=== PATIENT | female | born 1980 | race African-American/Black ===

== ENCOUNTER 2016-11-12 13:42 | Emergency (ER) | payer MEDICARE ==
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
[2016-11-12] MEDS ORDERED: Nicotine PATCH 21 MG/24 HR* PATCH TRANSDERM ONE (14:49)
[2016-11-12] MEDS ORDERED: LORazepam TAB(*) 1 MG PO ONE ×2 (14:49→21:16)
[2016-11-12] MEDS ORDERED: Acetaminophen TAB* 325 MG PO ONE ×2 (14:49→23:18)
[2016-11-12 14:59] LABS: Hematocrit 29 % (35-47); Hemoglobin 8.5 g/dl (12.0-16.0); Mean Corpuscular HGB Conc 30 g/dl (31-36); Mean Corpuscular Hemoglobin 19 pg (27-31); Mean Corpuscular Volume 63 fL (80-97); Mean Platelet Volume 7 um3 (7.4-10.4); Red Blood Count 4.57 10^6/ul (4.0-5.4); Red Cell Distribution Width 19 % (10.5-15); White Blood Count 3.7 10^3/ul (3.5-10.8)
[2016-11-12 15:04] LABS: Comments Flag Yes
[2016-11-12 15:05] LABS: Add Diff/Slide Review? Slide Review Added
[2016-11-12 15:14] LABS: ALT 17 U/L (7-52); AST 23 U/L (13-39); Albumin 4.2 g/dL (3.2-5.2); Alkaline Phosphatase 53 U/L (34-104); Anion Gap 9 mmol/L (2-11); BUN/Creatinine Ratio 12.2 (8-20); Blood Urea Nitrogen 10 mg/dL (6-24); CO2 Carbon Dioxide 25 mmol/L (22-32); Calcium 9.6 mg/dL (8.6-10.3); Chloride 104 mmol/L (101-111); EGFR African American 102.6 (>60); EGFR Non-African American 79.8 (>60); Globulin 3.7 g/dL (2-4); Glucose 95 mg/dL (70-100); Potassium 4.2 mmol/L (3.5-5.0); Sodium 138 mmol/L (133-145); Total Protein 7.9 g/dL (6.4-8.9)
[2016-11-12 15:15] LABS: Urine Bilirubin Negative (Negative); Urine Glucose Negative (Negative); Urine Nitrite Negative (Negative)
[2016-11-12 15:28] LABS: Acetaminophen < 15 mcg/mL; Alcohol < 10 mg/dL (<10); Salicylate < 2.50 mg/dL (<30)
[2016-11-12 15:31] LABS: Benzodiazepine Urine Screen None Detected (None Detect)
[2016-11-12 15:37] LABS: TSH (Thyroid Stimulating Horm) 0.53 mcIU/mL (0.34-5.60)
[2016-11-12 15:59] LABS: Add Path Review? YES; Hypochromasia 3+; Microcytosis 2+
[2016-11-12 16:11] LABS: Ferritin < 10.0 ng/mL (11-307)
[2016-11-12] MEDS ORDERED: Mouth Piece, Nicotine* 1 EACH CARTRIDGE INH ONE (22:29)
[2016-11-12] MEDS ORDERED: Mouth Piece, Nicotine* 1 EACH CARTRIDGE ONE (23:31)
[2016-11-12] MEDS ORDERED: Nicotine Inhaler* 10 MG AMP ONE (23:31)
[2016-11-12] MEDS: Nicotine Inhaler* 10 MG AMP INH PRN (23:34)
--- NOTE | 2016-11-13 02:09 | ED ---
Progress - Progress Note Progress Note: DR MONSON AT [facility] ACCEPTS PATIENT IN TRANSFER. - Consult/PCP Time Called: 15:10 Course/Dx - Diagnoses Provider Diagnoses: Persistent mood [affective] disorder, unspecified
[2016-11-13] MEDS: Nicotine Inhaler* 10 MG AMP INH PRN ×2 (02:11→08:04)
[2016-11-13] MEDS ORDERED: diPHENhydraMINE PO* 50 MG PO ONE (05:09)
[2016-11-13 10:04] VITALS: BP 113/56
[2016-11-13] MEDS ORDERED: LORazepam TAB(*) 1 MG PO ONE (10:04)
[2016-11-13] MEDS ORDERED: Acetaminophen TAB* 325 MG PO ONE (10:04)
[2016-11-13] MEDS ORDERED: LORazepam TAB(*) 1 MG ONE (10:06)
== END 2016-11-13 10:18 | disposition short-term general hospital (02) ==
LOC: ED 13:42
DX: F34.9 Persistent mood [affective] disorder, unspecified (principal); Z87.891 Personal history of nicotine dependence; F31.9 Bipolar disorder, unspecified
CPT/HCPCS: 36415; 80053; 80307; 80320; 80329; 81003; 82728; 84443; 85025; 85060; 93005; 99283; A9270-GY; G0480

== ENCOUNTER 2016-11-23 14:27 | Inpatient (IN) | payer MEDICARE ==
[2016-11-23 15:11] LABS: Comments Flag Yes; Hematocrit 28 % (35-47); Hemoglobin 8.3 g/dl (12.0-16.0); Mean Corpuscular HGB Conc 29 g/dl (31-36); Mean Corpuscular Hemoglobin 19 pg (27-31); Mean Platelet Volume 7 um3 (7.4-10.4); Red Blood Count 4.41 10^6/ul (4.0-5.4); Red Cell Distribution Width 19 % (10.5-15); White Blood Count 5.4 10^3/ul (3.5-10.8)
[2016-11-23 15:12] LABS: Mean Corpuscular Volume 64 fL (80-97)
[2016-11-23 15:21] LABS: Urine Bilirubin Negative (Negative); Urine Glucose Negative (Negative); Urine Nitrite Negative (Negative)
[2016-11-23 15:27] LABS: ALT 38 U/L (7-52); AST 33 U/L (13-39); Albumin 4.2 g/dL (3.2-5.2); Alkaline Phosphatase 51 U/L (34-104); Anion Gap 10 mmol/L (2-11); BUN/Creatinine Ratio 13.3 (8-20); Blood Urea Nitrogen 12 mg/dL (6-24); CO2 Carbon Dioxide 22 mmol/L (22-32); Calcium 9.2 mg/dL (8.6-10.3); Chloride 100 mmol/L (101-111); EGFR African American 92.2 (>60); EGFR Non-African American 71.7 (>60); Globulin 3.3 g/dL (2-4); Glucose 85 mg/dL (70-100); Potassium 3.8 mmol/L (3.5-5.0); Sodium 132 mmol/L (133-145); Total Protein 7.5 g/dL (6.4-8.9)
[2016-11-23 15:30] LABS: Benzodiazepine Urine Screen None Detected (None Detect)
[2016-11-23] MEDS ORDERED: Nicotine Inhaler* 10 MG AMP INH ONE (15:47)
[2016-11-23] MEDS ORDERED: Ibuprofen TAB* 600 MG PO ONE (15:49)
[2016-11-23] MEDS ORDERED: Nicotine Inhaler* 10 MG AMP ONE (15:49)
[2016-11-23] MEDS ORDERED: Mouth Piece, Nicotine* 1 EACH CARTRIDGE ONE (15:49)
[2016-11-23 16:27] LABS: Acetaminophen < 15 mcg/mL; Alcohol < 10 mg/dL (<10); Salicylate < 2.50 mg/dL (<30)
[2016-11-23 16:38] LABS: TSH (Thyroid Stimulating Horm) 2.19 mcIU/mL (0.34-5.60)
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
--- NOTE | 2016-11-24 02:33 | ED ---
Progress - Progress Note Progress Note: ADMIT MHU STABLE - Consult/PCP Time Called: 19:23 Course/Dx - Course Course Of Treatment: She is medically cleared and awaiting MHE. - Diagnoses Provider Diagnoses: Adjustment disorder - Provider Notifications Discussed Care Of Patient With: Dr. Noriega at change of shift
[2016-11-24] MEDS ORDERED: Nicotine GUM* 2 MG PO PRN (02:43)
[2016-11-24] MEDS ORDERED: Mouth Piece, Nicotine* 1 EACH CARTRIDGE ONE ×2 (03:57→08:43)
[2016-11-24] MEDS: Nicotine Inhaler* 10 MG AMP INH PRN ×3 (04:00→11:36)
[2016-11-24] MEDS: Acetaminophen TAB* 325 MG PO PRN ×2 (07:37→19:21)
[2016-11-24] MEDS: Ferrous Sulfate TAB* 325 MG PO SCH ×2 (08:44→20:45)
[2016-11-24] MEDS: Mouth Piece, Nicotine* 1 EACH CARTRIDGE INH SCH (08:45)
[2016-11-24] MEDS: Vitamin THERAPEUTIC TAB PO SCH (08:45)
[2016-11-24] MEDS: Hydrochlorothiazide TAB* 25 MG PO SCH ×2 (10:59→18:09)
[2016-11-24] MEDS ORDERED: LORazepam TAB(*) 1 MG PO ONE ×2 (12:20→12:28)
[2016-11-24] MEDS ORDERED: LORazepam TAB(*) 1 MG ONE (12:23)
[2016-11-24] MEDS ORDERED: chlorproMAZINE TAB* 50 MG PO ONE (12:25)
[2016-11-24] MEDS ORDERED: chlorproMAZINE TAB* 50 MG ONE (12:29)
[2016-11-24] MEDS ORDERED: LORazepam INJ* 2 MG/ML 1 ML VIAL ONE (13:13)
[2016-11-24] MEDS ORDERED: LORazepam INJ* 2 MG/ML 1 ML VIAL IM ONE (13:13)
[2016-11-24] MEDS ORDERED: diPHENhydraMINE IV* 50 MG/ML 1 ml VIAL (BENADRYL) IM ONE (13:13)
[2016-11-24] MEDS ORDERED: Haloperidol INJ IV/IM* 5 MG/ML AMP IM ONE (13:13)
[2016-11-24] MEDS ORDERED: Haloperidol INJ IV/IM* 5 MG/ML AMP ONE (13:14)
[2016-11-24] MEDS ORDERED: diPHENhydraMINE IV* 50 MG/ML 1 ml VIAL (BENADRYL) ONE (13:14)
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
[2016-11-24] MEDS: LORazepam TAB(*) 1 MG PO PRN (19:21)
[2016-11-25] MEDS: Nicotine Inhaler* 10 MG AMP INH PRN ×6 (07:54→20:37)
[2016-11-25] MEDS: Hydrochlorothiazide TAB* 25 MG PO SCH ×2 (10:05→16:51)
[2016-11-25] MEDS: Vitamin THERAPEUTIC TAB PO SCH (10:05)
[2016-11-25] MEDS: Ferrous Sulfate TAB* 325 MG PO SCH ×2 (10:05→20:47)
[2016-11-25] MEDS: LORazepam TAB(*) 1 MG PO PRN ×3 (10:10→18:54)
--- NOTE | 2016-11-25 13:10 | PN ---
Subjective - Subjective Service Type: [id number] Hosp care 15 min low complexity Subjective: Radha asks for ibuprofen 800 mg po bid for pain in her neck. She does not agree to sit with me now to discuss her symptoms and history. She is equivocal as to whether she will allow us to gather information from prior hospitalizations. She states that we have psychological problems, so she does not trust us. Objective - Appearance Appearance: Well Developed/Nourished Dysmorphic Features: No Hygiene: Normal Grooming: Disheveled - Behavior Psychomotor Activities: Abnormal-Decreased - in bed, rocking her supine body at about 2-3 Hz - Attitude and Relatedness Attitude and Relatedness: Dismissive Eye Contact: Poor - Speech Quality: Unpressured Latencies: Normal Quantity: Terse - Mood Patient's Decription of Mood: "N-i-n-[id number]" - Affect Observed Affect: Tense Affect Consistent with: Dysphoria - Thought Process Patient's Thought Process: Disorganized Thought Content: No Passive Wish, No Suicidal Planning, No Homicidal Ideation, No Paranoid Ideation - Sensorium Experiencing Hallucinations: No, Sensorium is Clear Type of Hallucinations: Visual: No, Auditory: No, Command: No - Level of Consciousness Level of Consciousness: Agitated - mildly, with demonstrated potential to escalate - Impulse Control Impulse Control: Impaired - Insight and Judgement Insight and Judgement: Impaired - Group Participation Particating in Group Activities: No Assessment - Assessment Merits Inpatient Hospitalization: For Immediate Safety, For Stabilization, Diagnosis Determination, To Initiate Treatment, For Ongoing Evaluation, For Discharge Planning, Pending Safe DC Plan Inpatient DSM-IV Dx: Psychotic Disorder NOS. Schizoaffective Disorder by history. Amphetamine, cocaine and cannabinoid use disorders Clinical Impression: Ms. Ramirez is a 36-year-old, -[place] woman who has returned to the emergency department seven days after being discharged from the [facility] to which she had been transferred after presenting here on the 12 of November with report of paranoid ideation and homicidal and suicidal ideation. She has evidently returned to a similar frame of mind shortly following discharge from the [facility]. She has required already on the unit chemical restraint for agitation with threatening behavior. We will be awaiting her to be able to take a more collaborative stance toward assessment and treatment to go forward with care here. Once that occurs, we will attempt to gather more history and mental status reports from her, and we will attempt to obtain releases to obtain discharge summaries and to communicate with those who have provided care for her in the community and perhaps also family members or familiars in the community. The presence of amphetamine and cocaine in her system could be the explanation for her paranoia and homicidal ideation, or this intoxication may be only exacerbating a chronic psychotic disorder. We will resume Zyprexa against psychosis, with Ativan and Seroquel as needed for anxiety and agitation. 11.25.16: Radha remains paranoid and disorganized. She refuses to rise from bed to sit with me to report further history. She requests ibuprofen for pain. She has been taking her HCTZ and FeSO4, also Ativan prn, but has refused Seroquel prn. She did receive 5 mg haloperidol and 50 mg diphenhydramine IM yesterday, and an additional IM of 1 mg lorazepam to po doses taken. Plan - Plan Treatment Plan: Name: RADHA RAMIREZ Birthdate: 1980 [id number] Encourage collaborative stance to allow care to go forward. Encourage med compliance. Monitor MS and safety, with careful monitoring of level of agitation and early behavioral or chemical interventions as needed to prevent escalation to violence. Medications: Current Medications Acetaminophen (Tylenol Tab*) 650 mg PO Q4H PRN PRN Reason: PAIN or TEMP > 101 F Last Admin: 11/24/16 19:21 Dose: 650 mg Al Hydrox/Mg Hydrox/Simethicone (Maalox Plus*) 30 ml PO Q4H PRN PRN Reason: INDIGESTION Device (Nicotine Mouth Piece*) 1 each INH .[place] [facility] Last Admin: 11/24/16 08:45 Dose: 1 each Ferrous Sulfate (Ferrous Sulfate Tab*) 325 mg PO BID [facility] Last Admin: 11/25/16 10:05 Dose: 325 mg Hydrochlorothiazide (Hydrodiuril Tab*) 50 mg PO 0800,1600 [facility] Last Admin: 11/25/16 10:05 Dose: Not Given Lorazepam (Ativan Tab(*)) 1 mg PO Q4H PRN PRN Reason: ANXIETY Last Admin: 11/25/16 10:10 Dose: 1 mg Multivitamins (Theragran Tab*) 1 tab PO DAILY [facility] Last Admin: 11/25/16 10:05 Dose: 1 tab Nicotine (Nicotine Inhaler*) 10 mg INH Q2H PRN PRN Reason: CRAVING Last Admin: 11/25/16 12:42 Dose: 10 mg Nicotine Polacrilex (Nicotine Gum*) 2 mg PO Q2H PRN PRN Reason: CRAVING Quetiapine Fumarate (Seroquel Tab*) 25 mg PO Q4H PRN PRN Reason: AGITATION - Discharge Plan Discharge Plan: Outpatient Follow Up
[2016-11-25] MEDS ORDERED: diPHENhydraMINE PO* 50 MG ONE (14:44)
[2016-11-25] MEDS: QUEtiapine TAB* 25 MG PO PRN (16:23)
[2016-11-25] MEDS ORDERED: Ibuprofen TAB* 400 MG ONE (20:36)
[2016-11-25] MEDS: OLANzapine TAB*ODT* 10 MG TAB PO SCH (20:47)
[2016-11-26] MEDS: Ibuprofen TAB* 400 MG PO PRN ×4 (04:04→19:35)
[2016-11-26] MEDS: LORazepam TAB(*) 1 MG PO PRN ×4 (04:06→17:00)
[2016-11-26] MEDS: Nicotine Inhaler* 10 MG AMP INH PRN ×6 (04:06→19:33)
[2016-11-26] MEDS: Ferrous Sulfate TAB* 325 MG PO SCH ×2 (08:27→20:24)
[2016-11-26] MEDS: Vitamin THERAPEUTIC TAB PO SCH (08:28)
[2016-11-26] MEDS: Hydrochlorothiazide TAB* 25 MG PO SCH ×2 (08:29→17:02)
[2016-11-26] MEDS: Acetaminophen TAB* 325 MG PO PRN (11:15)
[2016-11-26] MEDS: QUEtiapine TAB* 25 MG PO PRN (14:07)
--- NOTE | 2016-11-26 16:34 | PN ---
Subjective - Subjective Subjective: Radha remains loud, paranoid, disorganized, irritable, requests discharge angrily, she reports restful sleep, denies A/VH or any oter bothersome psychiatric complaints. She refuses to answer questions about circumstances that led to her admission, use of substances or adherence with outpatient treatment. Per staff, she remains in tenuous behavioral control. Objective - Appearance Appearance: Healthy Appearing Dysmorphic Features: No Hygiene: Normal Grooming: Disheveled - Behavior Psychomotor Activities: Normal Exhibits Abnormal Movement: No - Attitude and Relatedness Attitude and Relatedness: Psychotically Related Eye Contact: Fair - Speech Quality: Unpressured Latencies: Long Quantity: Terse - Mood Patient's Decription of Mood: angry - Affect Observed Affect: Non-labile Affect Consistent with: Dysphoria - Thought Process Patient's Thought Process: Tangential Thought Content: Yes Paranoid Ideation, No Passive Wish, No Suicidal Planning, No Homicidal Ideation - Sensorium Experiencing Hallucinations: No, Sensorium is Clear - Level of Consciousness Level of Consciousness: Alert Orientation: Yes Intact - Impulse Control Impulse Control: Tenuous - Insight and Judgement Insight and Judgement: Impaired - Group Participation Particating in Group Activities: No - Medication Management Medication Management Adherence: No Assessment - Assessment Merits Inpatient Hospitalization: Consolidate Improvements, For Discharge Planning Inpatient DSM-IV Dx: Psychotic Disorder NOS. Schizoaffective Disorder by history. Amphetamine, cocaine and cannabinoid use disorders Clinical Impression: Ongoing impairing psychotic symptoms, poorly adherent to prescribed meds. She need continued admission for stabilization. Court proceedings for retention and TOO may be considered. Plan - Plan Treatment Plan: Name: RADHA MOE Birthdate: 1980 [id number] Medications: Current Medications Acetaminophen (Tylenol Tab*) 650 mg PO Q4H PRN PRN Reason: PAIN or TEMP > 101 F Last Admin: 11/26/16 11:15 Dose: 650 mg Al Hydrox/Mg Hydrox/Simethicone (Maalox Plus*) 30 ml PO Q4H PRN PRN Reason: INDIGESTION Device (Nicotine Mouth Piece*) 1 each INH .[facility] Last Admin: 11/24/16 08:45 Dose: 1 each Ferrous Sulfate (Ferrous Sulfate Tab*) 325 mg PO BID [facility] Last Admin: 11/26/16 08:27 Dose: 325 mg Hydrochlorothiazide (Hydrodiuril Tab*) 50 mg PO 0800,1600 [facility] Last Admin: 11/26/16 08:29 Dose: Not Given Ibuprofen (Motrin Tab*) 400 mg PO Q6H PRN PRN Reason: PAIN Last Admin: 11/26/16 12:28 Dose: 400 mg Lorazepam (Ativan Tab(*)) 1 mg PO Q4H PRN PRN Reason: ANXIETY Last Admin: 11/26/16 12:29 Dose: 1 mg Multivitamins (Theragran Tab*) 1 tab PO DAILY [facility] Last Admin: 11/26/16 08:28 Dose: 1 tab Nicotine (Nicotine Inhaler*) 10 mg INH Q2H PRN PRN Reason: CRAVING Last Admin: 11/26/16 14:07 Dose: 10 mg Nicotine Polacrilex (Nicotine Gum*) 2 mg PO Q2H PRN PRN Reason: CRAVING Last Admin: 11/25/16 14:19 Dose: 2 mg Olanzapine (Zyprexa *Odt*) 10 mg PO BEDTIME [facility] Last Admin: 11/25/16 20:47 Dose: Not Given Quetiapine Fumarate (Seroquel Tab*) 25 mg PO Q4H PRN PRN Reason: AGITATION Last Admin: 11/26/16 14:07 Dose: 25 mg - Discharge Plan Discharge Plan: Consider Longer Term Tx Outpatient Program: TBD
[2016-11-26] MEDS: Haloperidol TAB* 5 MG PO PRN (20:20)
[2016-11-26] MEDS: OLANzapine TAB*ODT* 10 MG TAB PO SCH (20:24)
[2016-11-27] MEDS: Nicotine Inhaler* 10 MG AMP INH PRN ×5 (01:52→19:51)
[2016-11-27] MEDS: Ibuprofen TAB* 400 MG PO PRN ×3 (01:53→16:39)
[2016-11-27] MEDS: LORazepam TAB(*) 1 MG PO PRN ×4 (01:53→19:28)
[2016-11-27] MEDS: Al Hydrox/Mg Hydrox/Simet LIQ* 30 ML UDC PO PRN ×2 (02:45→20:05)
[2016-11-27] MEDS: Hydrochlorothiazide TAB* 25 MG PO SCH ×2 (08:53→16:16)
[2016-11-27] MEDS: Ferrous Sulfate TAB* 325 MG PO SCH ×2 (09:54→21:32)
[2016-11-27] MEDS: Vitamin THERAPEUTIC TAB PO SCH (09:54)
[2016-11-27] MEDS: Haloperidol TAB* 5 MG PO PRN ×2 (16:39→21:32)
[2016-11-27] MEDS: Acetaminophen TAB* 325 MG PO PRN (19:28)
[2016-11-27] MEDS: OLANzapine TAB*ODT* 10 MG TAB PO SCH (21:35)
[2016-11-28] MEDS: Ferrous Sulfate TAB* 325 MG PO SCH ×2 (09:50→21:02)
[2016-11-28] MEDS: Ibuprofen TAB* 400 MG PO PRN (09:51)
[2016-11-28] MEDS: Hydrochlorothiazide TAB* 25 MG PO SCH ×2 (09:51→16:20)
[2016-11-28] MEDS: Vitamin THERAPEUTIC TAB PO SCH (09:51)
--- NOTE | 2016-11-28 11:33 | PN ---
Subjective - Subjective Service Type: 88912 Hosp care 25 min moderate complexity Subjective: Radha demonstrates zero insight into her mental illness, stating that she has not had anything going on requiring our help and we should release her. She is , however, less irritable. She complains that she has to move today, and so she must be discharged, and has no appreciation of the severely disorganized behavior she has had in the past few days precluding discharge until signs of greater stability are shown. She has no physical complaints. Objective - Appearance Appearance: Healthy Appearing Dysmorphic Features: No Hygiene: Normal Grooming: Disheveled - Behavior Psychomotor Activities: Abnormal-Decreased Exhibits Abnormal Movement: No - Attitude and Relatedness Attitude and Relatedness: Irritable Eye Contact: Fair - Speech Quality: Unpressured Latencies: Normal Quantity: Appropriate - Mood Patient's Decription of Mood: "Fine" - Affect Observed Affect: Tense Affect Consistent with: Dysphoria - Thought Process Patient's Thought Process: Goal Directed - toward discharge Thought Content: No Passive Wish, No Suicidal Planning, No Homicidal Ideation, No Paranoid Ideation - Sensorium Experiencing Hallucinations: No, Sensorium is Clear Type of Hallucinations: Visual: No, Auditory: No, Command: No - Level of Consciousness Level of Consciousness: Alert Orientation: Yes Intact, Yes Orientated to Time, Yes Orientated to Place, Yes Orientated to Person - Impulse Control Impulse Control: Tenuous - Insight and Judgement Insight and Judgement: Impaired - Group Participation Particating in Group Activities: No Group Participation Comments: Declines almost all - Medication Management Medication Management Adherence: Partial - refusing HCTZ Assessment - Assessment Merits Inpatient Hospitalization: For Immediate Safety, For Stabilization, For Discharge Planning, Pending Safe DC Plan Inpatient DSM-IV Dx: Psychotic Disorder NOS. Schizoaffective Disorder by history. Amphetamine, cocaine and cannabinoid use disorders Clinical Impression: Ms. Ramirez is a 36-year-old, -[place] woman who has returned to the emergency department seven days after being discharged from the [facility] to which she had been transferred after presenting here on the 12 of November with report of paranoid ideation and homicidal and suicidal ideation. She has evidently returned to a similar frame of mind shortly following discharge from the [facility]. She has required already on the unit chemical restraint for agitation with threatening behavior. We will be awaiting her to be able to take a more collaborative stance toward assessment and treatment to go forward with care here. Once that occurs, we will attempt to gather more history and mental status reports from her, and we will attempt to obtain releases to obtain discharge summaries and to communicate with those who have provided care for her in the community and perhaps also family members or familiars in the community. The presence of amphetamine and cocaine in her system could be the explanation for her paranoia and homicidal ideation, or this intoxication may be only exacerbating a chronic psychotic disorder. We will resume Zyprexa against psychosis, with Ativan and Seroquel as needed for anxiety and agitation. 11.25.16: Radha remains paranoid and disorganized. She refuses to rise from bed to sit with me to report further history. She requests ibuprofen for pain. She has been taking her HCTZ and FeSO4, also Ativan prn, but has refused Seroquel prn. She did receive 5 mg haloperidol and 50 mg diphenhydramine IM yesterday, and an additional IM of 1 mg lorazepam to po doses taken. 4 Radha is able to sit and talk now. She still demonstrates no insight into her agitated presentation and her history of paranoid psychosis with SI and HI. She asks for discharge, but she would not be very likely to maintain stability following discharge yet. We will be looking to gather more collateral, though she declined again with me to allow us to get the discharge summary from [facility]. Plan - Plan Treatment Plan: Name: RADHA RAMIREZ Birthdate: 1980 [id number] Encourage collaborative stance to allow care to go forward. Encourage med compliance. Monitor MS and safety, with careful monitoring of level of agitation and early behavioral or chemical interventions as needed to prevent escalation to violence. Family meeting with sister. Will ask SW to see if there is anything we can do about her rent situation that she complains of as reason she should be discharged. Medications: Current Medications Acetaminophen (Tylenol Tab*) 650 mg PO Q4H PRN PRN Reason: PAIN or TEMP > 101 F Last Admin: 11/27/16 19:28 Dose: 650 mg Al Hydrox/Mg Hydrox/Simethicone (Maalox Plus*) 30 ml PO Q4H PRN PRN Reason: INDIGESTION Last Admin: 11/27/16 20:05 Dose: 30 ml Device (Nicotine Mouth Piece*) 1 each INH .[place] [facility] Last Admin: 11/24/16 08:45 Dose: 1 each Ferrous Sulfate (Ferrous Sulfate Tab*) 325 mg PO BID [facility] Last Admin: 11/28/16 09:50 Dose: 325 mg Haloperidol (Haldol Tab*) 5 mg PO Q4H PRN PRN Reason: AGITATION Last Admin: 11/27/16 21:32 Dose: 5 mg Hydrochlorothiazide (Hydrodiuril Tab*) 50 mg PO 0800,1600 [facility] Last Admin: 11/28/16 09:51 Dose: Not Given Ibuprofen (Motrin Tab*) 400 mg PO Q6H PRN PRN Reason: PAIN Last Admin: 11/28/16 09:51 Dose: 400 mg Lorazepam (Ativan Tab(*)) 1 mg PO Q4H PRN PRN Reason: ANXIETY Last Admin: 11/27/16 19:28 Dose: 1 mg Multivitamins (Theragran Tab*) 1 tab PO DAILY [facility] Last Admin: 11/28/16 09:51 Dose: Not Given Nicotine (Nicotine Inhaler*) 10 mg INH Q2H PRN PRN Reason: CRAVING Last Admin: 11/27/16 19:51 Dose: 10 mg Nicotine Polacrilex (Nicotine Gum*) 2 mg PO Q2H PRN PRN Reason: CRAVING Last Admin: 11/25/16 14:19 Dose: 2 mg Olanzapine (Zyprexa *Odt*) 10 mg PO BEDTIME [facility] Last Admin: 11/27/16 21:35 Dose: 10 mg - Discharge Plan Discharge Plan: Outpatient Follow Up
[2016-11-28] MEDS: Acetaminophen TAB* 325 MG PO PRN (14:35)
[2016-11-28] MEDS: LORazepam TAB(*) 1 MG PO PRN ×2 (14:35→21:02)
[2016-11-28] MEDS: Nicotine Inhaler* 10 MG AMP INH PRN (14:35)
[2016-11-28] MEDS: Haloperidol TAB* 5 MG PO PRN ×2 (16:18→21:01)
[2016-11-28] MEDS: OLANzapine TAB*ODT* 10 MG TAB PO SCH (21:02)
[2016-11-29] MEDS: Hydrochlorothiazide TAB* 25 MG PO SCH ×2 (09:39→15:41)
[2016-11-29] MEDS: Vitamin THERAPEUTIC TAB PO SCH (09:40)
[2016-11-29] MEDS: Ferrous Sulfate TAB* 325 MG PO SCH ×3 (09:40→22:03)
[2016-11-29] MEDS: Haloperidol TAB* 5 MG PO PRN ×2 (12:32→19:00)
[2016-11-29] MEDS: Nicotine Inhaler* 10 MG AMP INH PRN (12:32)
[2016-11-29] MEDS: LORazepam TAB(*) 1 MG PO PRN ×2 (12:32→16:47)
[2016-11-29] MEDS: Ibuprofen TAB* 400 MG PO PRN (15:39)
--- NOTE | 2016-11-29 16:25 | PN ---
Subjective - Subjective Service Type: 05709 Hosp care 15 min low complexity Subjective: Radha remains calm and in behavioral control. She says she does not know why I would want to obtain information from [facility] in [place]. She says she does not know what to think of circumstances leading to this hospitalization. She expresses concerns about her housing and property due to nonpayment of rent. Objective - Appearance Appearance: Well Developed/Nourished Dysmorphic Features: No Hygiene: Normal Grooming: Fairly Well Kept - Behavior Psychomotor Activities: Normal Exhibits Abnormal Movement: No - Attitude and Relatedness Attitude and Relatedness: Minimally Cooperative Eye Contact: Fair - Speech Quality: Unpressured Latencies: Short Quantity: Terse - Mood Patient's Decription of Mood: "Okay" - "Frustrated I'm still here" - Affect Observed Affect: Fair Affect Consistent with: Euthymia - Thought Process Patient's Thought Process: Coherent, Goal Directed - but unable to explain presentation leading to hospitalization Thought Content: No Passive Wish, No Suicidal Planning, No Homicidal Ideation, No Paranoid Ideation - Sensorium Experiencing Hallucinations: No, Sensorium is Clear Type of Hallucinations: Visual: No, Auditory: No, Command: No - Level of Consciousness Level of Consciousness: Alert Orientation: Yes Intact, Yes Orientated to Time, Yes Orientated to Place, Yes Orientated to Person - Impulse Control Impulse Control: Intact - Insight and Judgement Insight and Judgement: Impaired - Group Participation Particating in Group Activities: No - Medication Management Medication Management Adherence: Yes - except HCTZ Assessment - Assessment Merits Inpatient Hospitalization: For Immediate Safety, For Stabilization, For Ongoing Evaluation, For Discharge Planning, Pending Safe DC Plan Inpatient DSM-IV Dx: Psychotic Disorder NOS. Schizoaffective Disorder by history. Amphetamine, cocaine and cannabinoid use disorders Clinical Impression: Ms. Ramirez is a 36-year-old, -[place] woman who has returned to the emergency department seven days after being discharged from the [facility] to which she had been transferred after presenting here on the 12 of November with report of paranoid ideation and homicidal and suicidal ideation. She has evidently returned to a similar frame of mind shortly following discharge from the [facility]. She has required already on the unit chemical restraint for agitation with threatening behavior. We will be awaiting her to be able to take a more collaborative stance toward assessment and treatment to go forward with care here. Once that occurs, we will attempt to gather more history and mental status reports from her, and we will attempt to obtain releases to obtain discharge summaries and to communicate with those who have provided care for her in the community and perhaps also family members or familiars in the community. The presence of amphetamine and cocaine in her system could be the explanation for her paranoia and homicidal ideation, or this intoxication may be only exacerbating a chronic psychotic disorder. We will resume Zyprexa against psychosis, with Ativan and Seroquel as needed for anxiety and agitation. 31.17: Radha remains paranoid and disorganized. She refuses to rise from bed to sit with me to report further history. She requests ibuprofen for pain. She has been taking her HCTZ and FeSO4, also Ativan prn, but has refused Seroquel prn. She did receive 5 mg haloperidol and 50 mg diphenhydramine IM yesterday, and an additional IM of 1 mg lorazepam to po doses taken. 4.3.17 Radha is able to sit and talk now. She still demonstrates no insight into her agitated presentation and her history of paranoid psychosis with SI and HI. She asks for discharge, but she would not be very likely to maintain stability following discharge yet. We will be looking to gather more collateral, though she declined again with me to allow us to [facility] 4.4.17 Radha remains calmer, but still with limited insight into circumstances preceding hospitalization, versus guarded presentation. Med compliant. Not attending groups. Family meeting tomorrow. Plan - Plan Treatment Plan: Name: RADHA RAMIREZ Birthdate: 1980 [id number] Family meeting tomorrow. Monitor MS and safety, with careful monitoring of level of agitation and early behavioral or chemical interventions as needed to prevent escalation to violence. SW working on her rent situation. Medications: Current Medications Acetaminophen (Tylenol Tab*) 650 mg PO Q4H PRN PRN Reason: PAIN or TEMP > 101 F Last Admin: 11/28/16 14:35 Dose: 650 mg Al Hydrox/Mg Hydrox/Simethicone (Maalox Plus*) 30 ml PO Q4H PRN PRN Reason: INDIGESTION Last Admin: 11/27/16 20:05 Dose: 30 ml Device (Nicotine Mouth Piece*) 1 each INH .[facility] [facility] Last Admin: 11/24/16 08:45 Dose: 1 each Ferrous Sulfate (Ferrous Sulfate Tab*) 325 mg PO BID [facility] Last Admin: 11/29/16 12:31 Dose: 325 mg Haloperidol (Haldol Tab*) 5 mg PO Q4H PRN PRN Reason: AGITATION Last Admin: 11/29/16 12:32 Dose: 5 mg Hydrochlorothiazide (Hydrodiuril Tab*) 50 mg PO 0800,1600 [facility] Last Admin: 11/29/16 15:41 Dose: Not Given Ibuprofen (Motrin Tab*) 400 mg PO Q6H PRN PRN Reason: PAIN Last Admin: 11/29/16 15:39 Dose: 400 mg Lorazepam (Ativan Tab(*)) 1 mg PO Q4H PRN PRN Reason: ANXIETY Last Admin: 11/29/16 12:32 Dose: 1 mg Multivitamins (Theragran Tab*) 1 tab PO DAILY [facility] Last Admin: 11/29/16 09:40 Dose: Not Given Nicotine (Nicotine Inhaler*) 10 mg INH Q2H PRN PRN Reason: CRAVING Last Admin: 11/29/16 12:32 Dose: 10 mg Nicotine Polacrilex (Nicotine Gum*) 2 mg PO Q2H PRN PRN Reason: CRAVING Last Admin: 11/25/16 14:19 Dose: 2 mg Olanzapine (Zyprexa *Odt*) 10 mg PO BEDTIME [facility] Last Admin: 11/28/16 21:02 Dose: 10 mg - Discharge Plan Discharge Plan: Outpatient Follow Up
[2016-11-29] MEDS: Acetaminophen TAB* 325 MG PO PRN (19:00)
[2016-11-29] MEDS: Al Hydrox/Mg Hydrox/Simet LIQ* 30 ML UDC PO PRN (19:00)
[2016-11-29] MEDS: OLANzapine TAB*ODT* 10 MG TAB PO SCH (22:03)
[2016-11-30] MEDS: OLANzapine TAB*ODT* 10 MG TAB PO SCH ×2 (01:24→21:08)
[2016-11-30] MEDS: Haloperidol TAB* 5 MG PO PRN ×4 (01:24→22:02)
[2016-11-30] MEDS: LORazepam TAB(*) 1 MG PO PRN ×5 (01:24→22:02)
[2016-11-30] MEDS: Ibuprofen TAB* 400 MG PO PRN ×2 (01:24→09:13)
[2016-11-30] MEDS: Ferrous Sulfate TAB* 325 MG PO SCH ×2 (09:12→21:09)
[2016-11-30] MEDS: Nicotine Inhaler* 10 MG AMP INH PRN ×3 (09:13→17:40)
[2016-11-30] MEDS: Hydrochlorothiazide TAB* 25 MG PO SCH ×2 (09:40→16:16)
[2016-11-30] MEDS: Vitamin THERAPEUTIC TAB PO SCH (09:41)
--- NOTE | 2016-11-30 15:32 | PN ---
Subjective - Subjective Service Type: 98501 Hosp care 35 min high complexity Subjective: Had family meeting today with Radha, sister Gustavo, manager social work Joana Harper, and myself. Radha was more calm and collaborative than before, but still paranoid and refusing to engage usefully in the meeting for the most part, focusing on goal of immediate discharge. Gustavo said Radha is definitely not yet her usual self, that she has in the past not had psychosis but rather depression as a central psychiatric issue, had moved to this area from [place] for Gustavo's support because she had not been doing well in [place], and has a brother diagnosed with schizophrenia. Radha agreed after some discussion to sign release for discharge summaries from [facility]. Objective - Appearance Appearance: Well Developed/Nourished Dysmorphic Features: No Hygiene: Normal Grooming: Fairly Well Kept - Behavior Psychomotor Activities: Normal Exhibits Abnormal Movement: No - Attitude and Relatedness Attitude and Relatedness: Dismissive Eye Contact: Fair - Speech Quality: Unpressured Latencies: Short Quantity: Terse - Mood Patient's Decription of Mood: "Angry" - Affect Observed Affect: Tense Affect Consistent with: Dysphoria - but milder now - Thought Process Patient's Thought Process: Coherent, Goal Directed - but guarded Thought Content: Yes Paranoid Ideation - without insight, No Passive Wish , No Suicidal Planning, No Homicidal Ideation - Sensorium Experiencing Hallucinations: No, Sensorium is Clear Type of Hallucinations: Visual: No, Auditory: No, Command: No - Level of Consciousness Level of Consciousness: Alert Orientation: Yes Intact, Yes Orientated to Time, Yes Orientated to Place, Yes Orientated to Person - Impulse Control Impulse Control: Tenuous - Insight and Judgement Insight and Judgement: Impaired - Group Participation Particating in Group Activities: No - Medication Management Medication Management Adherence: Partial Assessment - Assessment Merits Inpatient Hospitalization: For Immediate Safety, For Stabilization, For Discharge Planning Inpatient DSM-IV Dx: Psychotic Disorder NOS. Schizoaffective Disorder by history. Amphetamine, cocaine and cannabinoid use disorders Clinical Impression: Ms. Ramirez is a 36-year-old, -Hond[place] woman who has returned to the emergency department seven days after being discharged from the [facility] to which she had been transferred after presenting here on the 12 of November with report of paranoid ideation and homicidal and suicidal ideation. She has evidently returned to a similar frame of mind shortly following discharge from the [facility]. She has required already on the unit chemical restraint for agitation with threatening behavior. We will be awaiting her to be able to take a more collaborative stance toward assessment and treatment to go forward with care here. Once that occurs, we will attempt to gather more history and mental status reports from her, and we will attempt to obtain releases to obtain discharge summaries and to communicate with those who have provided care for her in the community and perhaps also family members or familiars in the community. The presence of amphetamine and cocaine in her system could be the explanation for her paranoia and homicidal ideation, or this intoxication may be only exacerbating a chronic psychotic disorder. We will resume Zyprexa against psychosis, with Ativan and Seroquel as needed for anxiety and agitation. 331.17: Radha remains paranoid and disorganized. She refuses to rise from bed to sit with me to report further history. She requests ibuprofen for pain. She has been taking her HCTZ and FeSO4, also Ativan prn, but has refused Seroquel prn. She did receive 5 mg haloperidol and 50 mg diphenhydramine IM yesterday, and an additional IM of 1 mg lorazepam to po doses taken. 4.3.17 Radha is able to sit and talk now. She still demonstrates no insight into her agitated presentation and her history of paranoid psychosis with SI and HI. She asks for discharge, but she would not be very likely to maintain stability following discharge yet. We will be looking to gather more collateral, though she declined again with me to allow us to [facility]. 4.4.17 Radha remains calmer, but still with limited insight into circumstances preceding hospitalization, versus guarded presentation. Med compliant. Not attending groups. Family meeting tomorrow. 4.5.17 Radha agrees to what may be informative collateral from [facility]. Sister reports family history of schizophrenia, patient's history of no psychosis before recent weeks/months, past history of depressive illness, difficult adolescence with childbirth at 18 and of mother. Discussed past trials of lithium, but Radha chose to continue on Zyprexa only, with understanding that it can be effective against acute zoey: refused increased dose. Plan - Plan Treatment Plan: Name: RADHA RAMIREZ Birthdate: 1980 [id number] Continue Zyprexa 10 mg HS. Monitor MS and safety, with careful monitoring of level of agitation and early behavioral or chemical interventions as needed to prevent escalation to violence. SW working on her rent situation, having found out landlord is at [address] in [place]. Anticipate d/c summaries soon. Medications: Current Medications Acetaminophen (Tylenol Tab*) 650 mg PO Q4H PRN PRN Reason: PAIN or TEMP > 101 F Last Admin: 11/29/16 19:00 Dose: 650 mg Al Hydrox/Mg Hydrox/Simethicone (Maalox Plus*) 30 ml PO Q4H PRN PRN Reason: INDIGESTION Last Admin: 11/29/16 19:00 Dose: 30 ml Device (Nicotine Mouth Piece*) 1 each INH .[facility] Last Admin: 11/24/16 08:45 Dose: 1 each Ferrous Sulfate (Ferrous Sulfate Tab*) 325 mg PO BID [facility] Last Admin: 11/30/16 09:12 Dose: 325 mg Haloperidol (Haldol Tab*) 5 mg PO Q4H PRN PRN Reason: AGITATION Last Admin: 11/30/16 13:27 Dose: 5 mg Hydrochlorothiazide (Hydrodiuril Tab*) 50 mg PO 0800,1600 [facility] Last Admin: 11/30/16 09:40 Dose: Not Given Ibuprofen (Motrin Tab*) 400 mg PO Q6H PRN PRN Reason: PAIN Last Admin: 11/30/16 09:13 Dose: 400 mg Lorazepam (Ativan Tab(*)) 1 mg PO Q4H PRN PRN Reason: ANXIETY Last Admin: 11/30/16 13:28 Dose: 1 mg Multivitamins (Theragran Tab*) 1 tab PO DAILY [facility] Last Admin: 11/30/16 09:41 Dose: 1 tab Nicotine (Nicotine Inhaler*) 10 mg INH Q2H PRN PRN Reason: CRAVING Last Admin: 11/30/16 13:27 Dose: 10 mg Nicotine Polacrilex (Nicotine Gum*) 2 mg PO Q2H PRN PRN Reason: CRAVING Last Admin: 11/25/16 14:19 Dose: 2 mg Olanzapine (Zyprexa *Odt*) 10 mg PO BEDTIME [facility] Last Admin: 11/30/16 01:24 Dose: 10 mg - Discharge Plan Discharge Plan: Outpatient Follow Up Outpatient Program: [facility]
[2016-12-01] MEDS: Haloperidol TAB* 5 MG PO PRN ×3 (08:32→19:37)
[2016-12-01] MEDS: LORazepam TAB(*) 1 MG PO PRN ×3 (08:32→19:38)
[2016-12-01] MEDS: Hydrochlorothiazide TAB* 25 MG PO SCH (08:32)
[2016-12-01] MEDS: Ferrous Sulfate TAB* 325 MG PO SCH ×2 (08:32→21:07)
[2016-12-01] MEDS: Vitamin THERAPEUTIC TAB PO SCH (08:32)
[2016-12-01] MEDS: Ibuprofen TAB* 400 MG PO PRN ×2 (08:33→19:37)
[2016-12-01] MEDS: Nicotine Inhaler* 10 MG AMP INH PRN ×3 (08:36→19:39)
--- NOTE | 2016-12-01 11:57 | PN ---
Subjective - Subjective Service Type: 11094 Hosp care 15 min low complexity Subjective: Radha reports she is tired of playing games here and just wants not to be miserable, so she will go along with the program now. She denies any continued homicidality or psychosis. She does appear calmer and less irritable. She reports that her irritable here has been due to feeling like other patient's were mocking her when she first came on the unit. When I attempt to broach the topic of how much amphetamine may have influenced events, she evades the question. Report received from [facility] gives no history of much use for clarification of psychiatric history, though does repor history of pinched nerve in neck she had not reported. Objective - Appearance Appearance: Healthy Appearing Dysmorphic Features: No Hygiene: Normal Grooming: Fairly Well Kept - Behavior Psychomotor Activities: Abnormal-Decreased - spending today in bed, says she needs to catch up on sleep Exhibits Abnormal Movement: No - Attitude and Relatedness Attitude and Relatedness: Superficially Cooperative Eye Contact: Fair - Speech Quality: Unpressured Latencies: Normal Quantity: Terse - Mood Patient's Decription of Mood: "Fine" - Affect Observed Affect: Depressed Affect Consistent with: Dysphoria - Thought Process Patient's Thought Process: Coherent, Goal Directed Thought Content: No Passive Wish, No Suicidal Planning, No Homicidal Ideation, No Paranoid Ideation - Sensorium Experiencing Hallucinations: No, Sensorium is Clear Type of Hallucinations: Visual: No, Auditory: No, Command: No - Level of Consciousness Level of Consciousness: Alert Orientation: Yes Intact, Yes Orientated to Time, Yes Orientated to Place, Yes Orientated to Person - Impulse Control Impulse Control: Intact - Insight and Judgement Insight and Judgement: Poor - Group Participation Particating in Group Activities: No Group Participation Comments: Declining most groups - Medication Management Medication Management Adherence: Yes Assessment - Assessment Merits Inpatient Hospitalization: For Stabilization, Consolidate Improvements, For Discharge Planning Inpatient DSM-IV Dx: Psychotic Disorder NOS. Schizoaffective Disorder by history. Amphetamine, cocaine and cannabinoid use disorders Clinical Impression: Ms. Ramirez is a 36-year-old, -[place]amanian woman who has returned to the emergency department seven days after being discharged from the [facility] Unit to which she had been transferred after presenting here on the 12 of November with report of paranoid ideation and homicidal and suicidal ideation. She has evidently returned to a similar frame of mind shortly following discharge from the [facility]. She has required already on the unit chemical restraint for agitation with threatening behavior. We will be awaiting her to be able to take a more collaborative stance toward assessment and treatment to go forward with care here. Once that occurs, we will attempt to gather more history and mental status reports from her, and we will attempt to obtain releases to obtain discharge summaries and to communicate with those who have provided care for her in the community and perhaps also family members or familiars in the community. The presence of amphetamine and cocaine in her system could be the explanation for her paranoia and homicidal ideation, or this intoxication may be only exacerbating a chronic psychotic disorder. We will resume Zyprexa against psychosis, with Ativan and Seroquel as needed for anxiety and agitation. 31.17: Radha remains paranoid and disorganized. She refuses to rise from bed to sit with me to report further history. She requests ibuprofen for pain. She has been taking her HCTZ and FeSO4, also Ativan prn, but has refused Seroquel prn. She did receive 5 mg haloperidol and 50 mg diphenhydramine IM yesterday, and an additional IM of 1 mg lorazepam to po doses taken. 4.3.17 Radha is able to sit and talk now. She still demonstrates no insight into her agitated presentation and her history of paranoid psychosis with SI and HI. She asks for discharge, but she would not be very likely to maintain stability following discharge yet. We will be looking to gather more collateral, though she declined again with me to allow us to get the discharge summary from [facility]. 4.4.17 Radha remains calmer, but still with limited insight into circumstances preceding hospitalization, versus guarded presentation. Med compliant. Not attending groups. Family meeting tomorrow. 4.5.17 Radha agrees to what may be informative collateral from [facility]. Sister reports family history of schizophrenia, patient's history of no psychosis before recent weeks/months, past history of depressive illness, difficult adolescence with childbirth at 18 and of mother. Discussed past trials of lithium, but Radha chose to continue on Zyprexa only, with understanding that it can be effective against acute zoey: refused increased dose. 4.6.17 Normotensive on all checks while refusing HCTZ: D/C HCTZ. Taking Zyprexa, with psychosis clearing. Still sleeping most of the day, or at least lying down with eyes closed in room or in milieu. Collateral from [facility] gives no clarifying history: await reports from [facility] to help with question of whether recent psychosis may have been due to amphetamine abuse or is chronic condition. Radha remains paranoid/guarded and does not help clarify this with report of her history, unsure if this is due to incapacity or choice. If trend of clearing psychosis with remitted dangerous intent/plan holds and improves, may be ready for stable discharge early next week. Refused increased Zyprexa dose or initiation of lithium, which in yesterday's meeting she said she had taken in the past, raising suspicion for history of bipolar illness. Plan - Plan Treatment Plan: Name: RADHA RAMIREZ Birthdate: 1980 [id number] Continue Zyprexa 10 mg HS. Monitor MS and safety, with careful monitoring of level of agitation and early behavioral or chemical interventions as needed to prevent escalation to violence. SW working on her rent situation. Anticipate d /c summaries soon from [facility], hope for more clarification of history from them. Medications: Current Medications Acetaminophen (Tylenol Tab*) 650 mg PO Q4H PRN PRN Reason: PAIN or TEMP > 101 F Last Admin: 11/29/16 19:00 Dose: 650 mg Al Hydrox/Mg Hydrox/Simethicone (Maalox Plus*) 30 ml PO Q4H PRN PRN Reason: INDIGESTION Last Admin: 11/29/16 19:00 Dose: 30 ml Device (Nicotine Mouth Piece*) 1 each INH .[facility] Last Admin: 11/24/16 08:45 Dose: 1 each Ferrous Sulfate (Ferrous Sulfate Tab*) 325 mg PO BID [facility] Last Admin: 12/01/16 08:32 Dose: 325 mg Haloperidol (Haldol Tab*) 5 mg PO Q4H PRN PRN Reason: AGITATION Last Admin: 12/01/16 08:32 Dose: 5 mg Hydrochlorothiazide (Hydrodiuril Tab*) 50 mg PO 0800,1600 [facility] Last Admin: 12/01/16 08:32 Dose: Not Given Ibuprofen (Motrin Tab*) 400 mg PO Q6H PRN PRN Reason: PAIN Last Admin: 12/01/16 08:33 Dose: 400 mg Lorazepam (Ativan Tab(*)) 1 mg PO Q4H PRN PRN Reason: ANXIETY Last Admin: 12/01/16 08:32 Dose: 1 mg Multivitamins (Theragran Tab*) 1 tab PO DAILY [facility] Last Admin: 12/01/16 08:32 Dose: 1 tab Nicotine (Nicotine Inhaler*) 10 mg INH Q2H PRN PRN Reason: CRAVING Last Admin: 12/01/16 08:36 Dose: 10 mg Nicotine Polacrilex (Nicotine Gum*) 2 mg PO Q2H PRN PRN Reason: CRAVING Last Admin: 11/25/16 14:19 Dose: 2 mg Olanzapine (Zyprexa *Odt*) 10 mg PO BEDTIME [facility] Last Admin: 11/30/16 21:08 Dose: 10 mg
[2016-12-01] MEDS: Al Hydrox/Mg Hydrox/Simet LIQ* 30 ML UDC PO PRN (19:39)
[2016-12-01] MEDS: OLANzapine TAB*ODT* 10 MG TAB PO SCH (21:06)
[2016-12-02] MEDS: LORazepam TAB(*) 1 MG PO PRN ×3 (01:18→12:44)
[2016-12-02] MEDS: Haloperidol TAB* 5 MG PO PRN ×2 (01:18→12:44)
[2016-12-02] MEDS: Ferrous Sulfate TAB* 325 MG PO SCH ×2 (08:36→21:33)
[2016-12-02] MEDS: Vitamin THERAPEUTIC TAB PO SCH (08:36)
--- NOTE | 2016-12-02 14:45 | PN ---
Subjective - Subjective Service Type: 96041 Hosp care 15 min low complexity Subjective: Radha smiled broadly, superficially, and talked almost non-stop. She demanded we plan her release, citing a job to go to. She is apparently homeless, per , and does not address this. She dismisses the possibility that clinical concerns prompted her hospitalizations, and insists homicidal comments she made were taken wrong. She was irritable, and laughing. She agreed with Zyprexa treatment - I reviewed its profile. She said she's been asking for Haldol and Ativan to "Deal with the boredom here and sleep" - I discouraged that. She made no delusional comments, and denied ideas of reference. She acknowledged some persecutory ideas but more in a victim than paranoid position : "you people are messing up my life." Objective - Appearance Appearance: Healthy Appearing Hygiene: Normal Grooming: Fairly Well Kept - Behavior Psychomotor Activities: Abnormal-Increased - Attitude and Relatedness Attitude and Relatedness: Minimally Cooperative Eye Contact: Good - Speech Quality: Pressured Latencies: Short Quantity: Copious - Mood Patient's Decription of Mood: "Great" - Affect Observed Affect: Expansive Affect Consistent with: Euthymia - Thought Process Patient's Thought Process: Over Inclusive Thought Content: No Passive Wish, No Suicidal Planning, No Homicidal Ideation, No Paranoid Ideation - Sensorium Experiencing Hallucinations: No, Sensorium is Clear - Level of Consciousness Level of Consciousness: Alert - Impulse Control Impulse Control: Intact - Insight and Judgement Insight and Judgement: Poor Assessment - Assessment Merits Inpatient Hospitalization: For Immediate Safety, For Stabilization, To Initiate Treatment, For Ongoing Evaluation, Consolidate Improvements, For Discharge Planning, Pending Safe DC Plan Inpatient DSM-IV Dx: Psychotic Disorder NOS. Mood disorder NOS. Schizoaffective Disorder by history. Amphetamine, cocaine and cannabinoid use disorders Clinical Impression: 36 y/o female with substance use disorders, recent psychiatric hospitalization, prior mood condition and [facility] treatment, family history of schizophrenia, and reported diagnosis of Schizoaffective disorder. She was admitted about a week after psychiatric discharge. She was brought to the ED by police after threatening homicide at [facility], and was evaluated with impairing psychosis. She was violent in the ED requiring restraints and emergency medication. Additionally she had some level of suicidal ideation preceding her other recent hospitalization. Her UDS was positive for Amphetamines, cannabis and Cocaine. Stabilizing here. Improving clinically. Initially was paranoid and agitated. She continues with intense affect with pressured copious speech, irritability, and very poor insight into risks and her condition. Medication management seeks coverage for Schizoaffective disorder with Zyprexa ( increasing 12/02). We have, and continue to consider [place] adjunct, but she refused it. Plan - Plan Treatment Plan: Name: RADHA MOE Birthdate: 1980 [id number] Continued Medication Management: Start Medication Medications: Current Medications Acetaminophen (Tylenol Tab*) 650 mg PO Q4H PRN PRN Reason: PAIN or TEMP > 101 F Last Admin: 11/29/16 19:00 Dose: 650 mg Al Hydrox/Mg Hydrox/Simethicone (Maalox Plus*) 30 ml PO Q4H PRN PRN Reason: INDIGESTION Last Admin: 12/01/16 19:39 Dose: 30 ml Device (Nicotine Mouth Piece*) 1 each INH .[facility] Last Admin: 11/24/16 08:45 Dose: 1 each Ferrous Sulfate (Ferrous Sulfate Tab*) 325 mg PO BID [facility] Last Admin: 12/02/16 08:36 Dose: 325 mg Haloperidol (Haldol Tab*) 5 mg PO Q4H PRN PRN Reason: AGITATION Last Admin: 12/02/16 12:44 Dose: 5 mg Ibuprofen (Motrin Tab*) 400 mg PO Q6H PRN PRN Reason: PAIN Last Admin: 12/01/16 19:37 Dose: 400 mg Lorazepam (Ativan Tab(*)) 1 mg PO Q4H PRN PRN Reason: ANXIETY Last Admin: 12/02/16 12:44 Dose: 1 mg Multivitamins (Theragran Tab*) 1 tab PO DAILY [facility] Last Admin: 12/02/16 08:36 Dose: 1 tab Nicotine (Nicotine Inhaler*) 10 mg INH Q2H PRN PRN Reason: CRAVING Last Admin: 12/01/16 19:39 Dose: 10 mg Nicotine Polacrilex (Nicotine Gum*) 2 mg PO Q2H PRN PRN Reason: CRAVING Last Admin: 11/25/16 14:19 Dose: 2 mg Olanzapine (Zyprexa *Odt*) 10 mg PO BEDTIME [facility] Last Admin: 12/01/16 21:06 Dose: 10 mg - Discharge Plan Discharge Plan: Outpatient Follow Up
[2016-12-02] MEDS: Nicotine Inhaler* 10 MG AMP INH PRN (15:31)
[2016-12-02] MEDS: OLANzapine TAB*ODT* 5 MG PO PRN (15:31)
[2016-12-02] MEDS: Ibuprofen TAB* 400 MG PO PRN (15:31)
[2016-12-02] MEDS: hydrOXYzine HCL TAB* 25 MG PO PRN ×2 (16:28→21:47)
[2016-12-02] MEDS: Acetaminophen TAB* 325 MG PO PRN (17:55)
[2016-12-02] MEDS: OLANzapine TAB*ODT* 5 MG PO SCH (21:33)
[2016-12-03] MEDS: hydrOXYzine HCL TAB* 25 MG PO PRN ×3 (05:00→17:58)
[2016-12-03] MEDS: Vitamin THERAPEUTIC TAB PO SCH (08:50)
[2016-12-03] MEDS: Ferrous Sulfate TAB* 325 MG PO SCH ×2 (08:51→21:58)
[2016-12-03] MEDS: Ibuprofen TAB* 400 MG PO PRN (08:52)
[2016-12-03] MEDS: Nicotine Inhaler* 10 MG AMP INH PRN ×4 (11:45→22:01)
[2016-12-03] MEDS: OLANzapine TAB*ODT* 5 MG PO SCH (21:59)
[2016-12-03] MEDS: Al Hydrox/Mg Hydrox/Simet LIQ* 30 ML UDC PO PRN (22:11)
[2016-12-04] MEDS: Ibuprofen TAB* 400 MG PO PRN ×2 (00:12→23:09)
[2016-12-04] MEDS: hydrOXYzine HCL TAB* 25 MG PO PRN ×4 (00:12→17:52)
[2016-12-04] MEDS: Nicotine Inhaler* 10 MG AMP INH PRN ×7 (00:13→19:10)
[2016-12-04] MEDS: OLANzapine TAB*ODT* 5 MG PO PRN ×2 (01:28→17:52)
[2016-12-04] MEDS ORDERED: diPHENhydraMINE PO* 25 MG PO PRN (08:23)
[2016-12-04] MEDS: Ferrous Sulfate TAB* 325 MG PO SCH ×2 (08:51→20:48)
[2016-12-04] MEDS: Vitamin THERAPEUTIC TAB PO SCH (08:52)
[2016-12-04] MEDS: Cetirizine* 10 MG TAB PO PRN (11:30)
[2016-12-04] MEDS: OLANzapine TAB*ODT* 5 MG PO SCH (20:46)
[2016-12-05] MEDS: Nicotine Inhaler* 10 MG AMP INH PRN ×2 (04:20→12:29)
[2016-12-05] MEDS: Cetirizine* 10 MG TAB PO PRN ×2 (04:20→09:15)
[2016-12-05] MEDS: Acetaminophen TAB* 325 MG PO PRN (04:20)
[2016-12-05] MEDS: Ibuprofen TAB* 400 MG PO PRN ×2 (09:14→23:50)
[2016-12-05] MEDS: Vitamin THERAPEUTIC TAB PO SCH (09:15)
[2016-12-05] MEDS: hydrOXYzine HCL TAB* 25 MG PO PRN ×2 (09:15→23:50)
[2016-12-05] MEDS: Ferrous Sulfate TAB* 325 MG PO SCH ×2 (09:15→23:50)
--- NOTE | 2016-12-05 11:47 | PN ---
Subjective - Subjective Service Type: 10317 Hosp care 15 min low complexity Subjective: Radha talked non stopped, and at one point cornered me, restricting my movement away. She focused on discharge, demanding release now. She escalated, yelling profanities. She dismissed concerns about prior homicidal ideation : "you're making me that way !!!" And she suggested we are just provoking and interfering with her. She dismissed concern about homelessness "I'll be homeless.. just not the fuck here!!" I tried to discuss [place]/Depakote, it did not get far, she acknowledged familiarity but made any use of them conditional on her immediate release. She demanded "a shot" of tranquilizing medicine. Objective - Appearance Appearance: Well Developed/Nourished Hygiene: Normal Grooming: Fairly Well Kept - Behavior Psychomotor Activities: Abnormal-Increased - Attitude and Relatedness Attitude and Relatedness: Hostile Eye Contact: Good - Speech Quality: Pressured Latencies: Short Quantity: Copious - Mood Patient's Decription of Mood: "Angry" - Affect Observed Affect: Labile Affect Consistent with: Dysphoria - Thought Process Patient's Thought Process: Goal Directed, Disorganized Thought Content: Yes Homicidal Ideation - conditional, Yes Paranoid Ideation, No Passive Wish, No Suicidal Planning - Level of Consciousness Level of Consciousness: Alert - Impulse Control Impulse Control: Poor - Insight and Judgement Insight and Judgement: Poor Assessment - Assessment Merits Inpatient Hospitalization: For Immediate Safety, For Stabilization, To Initiate Treatment, For Ongoing Evaluation, Pending Safe DC Plan Inpatient DSM-IV Dx: Psychotic Disorder NOS. Mood disorder NOS. Schizoaffective Disorder by history. Amphetamine, cocaine and cannabinoid use disorders Clinical Impression: 36 y/o female with substance use disorders, recent psychiatric hospitalization, prior mood condition and [place] treatment, family history of schizophrenia, and reported diagnosis of Schizoaffective disorder. She was admitted about a week after psychiatric discharge. She was brought to the ED by police after threatening homicide at [facility], and was evaluated with impairing psychosis. She was violent in the ED requiring restraints and emergency medication. Additionally she had some level of suicidal ideation preceding her other recent hospitalization. Her UDS was positive for Amphetamines, cannabis and Cocaine. Stabilizing here, in an up and down course. Has appeared to be improving clinically, and overtly was calm over weekend, but is explosive when confronted clinically or with frustration. Initially was paranoid and agitated. This is episodic now. She continues with intense affect with pressured copious speech, irritability, and very poor insight into risks and her condition. Medication management seeks coverage for Schizoaffective disorder with Zyprexa ( increasing again 12/05). We continue to consider [place] adjunct, but she refused it and could not meaningfully discuss it further. Plan - Plan Treatment Plan: Name: RADHA MOE Birthdate: 1980 [id number] Continued Medication Management: Start Medication Medications: Current Medications Acetaminophen (Tylenol Tab*) 650 mg PO Q4H PRN PRN Reason: PAIN or TEMP > 101 F Last Admin: 12/05/16 04:20 Dose: 650 mg Al Hydrox/Mg Hydrox/Simethicone (Maalox Plus*) 30 ml PO Q4H PRN PRN Reason: INDIGESTION Last Admin: 12/03/16 22:11 Dose: 30 ml Cetirizine HCl (Zyrtec*) 5 mg PO DAILY PRN PRN Reason: Allergy Symptoms Last Admin: 12/05/16 09:15 Dose: 5 mg Device (Nicotine Mouth Piece*) 1 each INH .[facility] Last Admin: 11/24/16 08:45 Dose: 1 each Ferrous Sulfate (Ferrous Sulfate Tab*) 325 mg PO BID [facility] Last Admin: 12/05/16 09:15 Dose: 325 mg Hydroxyzine HCl (Atarax Tab*) 25 mg PO Q6H PRN PRN Reason: ANXIETY Last Admin: 12/05/16 09:15 Dose: 25 mg Ibuprofen (Motrin Tab*) 400 mg PO Q6H PRN PRN Reason: PAIN Last Admin: 12/05/16 09:14 Dose: 400 mg Multivitamins (Theragran Tab*) 1 tab PO DAILY [facility] Last Admin: 12/05/16 09:15 Dose: 1 tab Nicotine (Nicotine Inhaler*) 10 mg INH Q2H PRN PRN Reason: CRAVING Last Admin: 12/05/16 04:20 Dose: 10 mg Nicotine Polacrilex (Nicotine Gum*) 2 mg PO Q2H PRN PRN Reason: CRAVING Last Admin: 11/25/16 14:19 Dose: 2 mg Olanzapine (Zyprexa * Tab Odt) 5 mg PO Q6H PRN PRN Reason: AGITATION Last Admin: 12/04/16 17:52 Dose: 5 mg - Discharge Plan Discharge Plan: Consider Longer Term Tx
[2016-12-05] MEDS ORDERED: chlorproMAZINE INJ* 25 MG/ML 2 ML (50 MG) ONE (11:49)
[2016-12-05] MEDS ORDERED: chlorproMAZINE INJ* 50 MG in NS 0.9% 50 ML* 50 ML IM SCH (12:00)
[2016-12-05] MEDS ORDERED: chlorproMAZINE INJ* 25 MG/ML 2 ML (50 MG) IM ONE (12:00)
[2016-12-05] MEDS: OLANzapine TAB*ODT* 5 MG PO PRN (12:29)
[2016-12-05] MEDS ORDERED: LORazepam INJ* 2 MG/ML 1 ML VIAL ONE (12:47)
[2016-12-05] MEDS ORDERED: diPHENhydraMINE IV* 50 MG/ML 1 ml VIAL (BENADRYL) ONE (12:48)
[2016-12-05] MEDS ORDERED: Haloperidol INJ IV/IM* 5 MG/ML AMP ONE (12:48)
[2016-12-05] MEDS: OLANzapine TAB*ODT* 5 MG PO SCH (23:50)
[2016-12-06] MEDS: Nicotine Inhaler* 10 MG AMP INH PRN ×5 (00:05→23:30)
[2016-12-06] MEDS: Ferrous Sulfate TAB* 325 MG PO SCH ×2 (08:26→23:30)
[2016-12-06] MEDS: Vitamin THERAPEUTIC TAB PO SCH (08:26)
[2016-12-06] MEDS: Ibuprofen TAB* 400 MG PO PRN ×2 (08:26→15:49)
[2016-12-06] MEDS: hydrOXYzine HCL TAB* 25 MG PO PRN ×2 (08:27→15:49)
[2016-12-06] MEDS: Cetirizine* 10 MG TAB PO PRN (08:27)
[2016-12-06] MEDS: OLANzapine TAB*ODT* 5 MG PO PRN (08:30)
[2016-12-06] MEDS: Acetaminophen TAB* 325 MG PO PRN (20:36)
[2016-12-06] MEDS: OLANzapine TAB*ODT* 5 MG PO SCH (23:30)
[2016-12-06] MEDS: Al Hydrox/Mg Hydrox/Simet LIQ* 30 ML UDC PO PRN (23:30)
[2016-12-07] MEDS: Vitamin THERAPEUTIC TAB PO SCH (07:59)
[2016-12-07] MEDS: Ferrous Sulfate TAB* 325 MG PO SCH ×2 (07:59→20:53)
[2016-12-07] MEDS: Nicotine Inhaler* 10 MG AMP INH PRN ×4 (08:00→22:01)
[2016-12-07] MEDS: Ibuprofen TAB* 400 MG PO PRN ×3 (08:00→21:57)
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
[2016-12-07] MEDS: OLANzapine TAB*ODT* 5 MG PO PRN ×2 (09:45→16:05)
[2016-12-07] MEDS: hydrOXYzine HCL TAB* 25 MG PO PRN ×3 (09:45→21:58)
[2016-12-07] MEDS ORDERED: Haloperidol INJ IV/IM* 5 MG/ML AMP ONE (10:45)
[2016-12-07] MEDS ORDERED: diPHENhydraMINE IV* 50 MG/ML 1 ml VIAL (BENADRYL) ONE (10:45)
--- NOTE | 2016-12-07 12:21 | PN ---
MHU: Group Therapy Note - Service Type Service Type: [id number] Group Psychotherapy - Cognitive Behavioral Group Therapy ( CBT):Patient presented in CBT programming as disorganized and disruptive in discussion and needed repeated redirection to attend to presented materials.
[2016-12-07] MEDS: Mouth Piece, Nicotine* 1 EACH CARTRIDGE INH SCH (13:22)
[2016-12-07] MEDS: clonazePAM TAB(*) 1 MG PO PRN ×2 (13:40→21:56)
[2016-12-07] MEDS: Acetaminophen TAB* 325 MG PO PRN (20:52)
[2016-12-07] MEDS: Cetirizine* 10 MG TAB PO PRN (20:53)
[2016-12-07] MEDS: Al Hydrox/Mg Hydrox/Simet LIQ* 30 ML UDC PO PRN (20:55)
[2016-12-07] MEDS ORDERED: OLANzapine TAB* 5 MG PO ONE (21:00)
[2016-12-07] MEDS: OLANzapine TAB*ODT* 5 MG PO SCH (22:24)
[2016-12-08] MEDS: clonazePAM TAB(*) 1 MG PO PRN ×2 (07:28→16:24)
[2016-12-08] MEDS: Ibuprofen TAB* 400 MG PO PRN ×2 (07:28→16:24)
[2016-12-08] MEDS: Nicotine Inhaler* 10 MG AMP INH PRN ×4 (07:28→21:32)
[2016-12-08] MEDS: Vitamin THERAPEUTIC TAB PO SCH (07:28)
[2016-12-08] MEDS: Mouth Piece, Nicotine* 1 EACH CARTRIDGE INH SCH (07:29)
[2016-12-08] MEDS: Ferrous Sulfate TAB* 325 MG PO SCH ×2 (07:29→23:20)
[2016-12-08] MEDS ORDERED: Mouth Piece, Nicotine* 1 EACH CARTRIDGE ONE (07:29)
[2016-12-08] MEDS: OLANzapine TAB*ODT* 5 MG PO PRN (12:25)
[2016-12-08] MEDS: hydrOXYzine HCL TAB* 25 MG PO PRN (12:25)
[2016-12-08] MEDS: OLANzapine TAB*ODT* 5 MG PO SCH (23:20)
[2016-12-09] MEDS: clonazePAM TAB(*) 1 MG PO PRN ×3 (00:44→17:28)
[2016-12-09] MEDS: Ibuprofen TAB* 400 MG PO PRN ×3 (00:44→15:57)
[2016-12-09] MEDS: Nicotine Inhaler* 10 MG AMP INH PRN ×7 (00:45→23:37)
[2016-12-09] MEDS: Vitamin THERAPEUTIC TAB PO SCH (08:57)
[2016-12-09] MEDS: Ferrous Sulfate TAB* 325 MG PO SCH ×2 (08:57→21:01)
[2016-12-09] MEDS: OLANzapine TAB*ODT* 5 MG PO PRN (08:58)
[2016-12-09] MEDS: hydrOXYzine HCL TAB* 25 MG PO PRN ×2 (09:38→21:01)
[2016-12-09] MEDS: Lithium Carbonate ER* 450 MG TAB.ER PO SCH ×2 (11:11→21:01)
[2016-12-09] MEDS ORDERED: LORazepam INJ* 2 MG/ML 1 ML VIAL ONE (12:07)
[2016-12-09] MEDS ORDERED: diPHENhydraMINE IV* 50 MG/ML 1 ml VIAL (BENADRYL) ONE (12:07)
[2016-12-09] MEDS ORDERED: Haloperidol INJ IV/IM* 5 MG/ML AMP ONE (12:08)
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
--- NOTE | 2016-12-09 12:14 | PN ---
MHU: Group Therapy Note - Service Type Service Type: [id number] Group Psychotherapy - Cognitive Behavioral Group Therapy ( CBT):Patient presented in CBT programming as disorganized and disruptive in discussion and needed repeated redirection to attend to presented materials.
[2016-12-09] MEDS ORDERED: chlorproMAZINE TAB* 200 MG PO ONE (13:51)
[2016-12-09] MEDS ORDERED: chlorproMAZINE TAB* 100 MG ONE (13:53)
[2016-12-09] MEDS ORDERED: Haloperidol TAB* 5 MG PO ONE (13:57)
[2016-12-09] MEDS ORDERED: Haloperidol TAB* 5 MG ONE (13:59)
[2016-12-09] MEDS ORDERED: chlorproMAZINE TAB* 200 MG PO SCH (17:00)
[2016-12-09] MEDS: OLANzapine TAB*ODT* 5 MG PO SCH (21:02)
[2016-12-10] MEDS: Nicotine Inhaler* 10 MG AMP INH PRN ×2 (03:19→15:52)
[2016-12-10] MEDS: clonazePAM TAB(*) 1 MG PO PRN ×3 (03:19→23:55)
[2016-12-10] MEDS: hydrOXYzine HCL TAB* 25 MG PO PRN ×2 (07:22→15:52)
[2016-12-10] MEDS: Lithium Carbonate ER* 450 MG TAB.ER PO SCH ×2 (10:07→23:55)
[2016-12-10] MEDS: Ferrous Sulfate TAB* 325 MG PO SCH ×2 (10:07→23:55)
[2016-12-10] MEDS: Haloperidol TAB* 5 MG PO SCH (10:08)
[2016-12-10] MEDS: Vitamin THERAPEUTIC TAB PO SCH (10:09)
[2016-12-10] MEDS: Ibuprofen TAB* 400 MG PO PRN (23:55)
[2016-12-10] MEDS: OLANzapine TAB*ODT* 5 MG PO SCH (23:55)
[2016-12-11] MEDS: Vitamin THERAPEUTIC TAB PO SCH (08:41)
[2016-12-11] MEDS: Haloperidol TAB* 5 MG PO SCH (08:41)
[2016-12-11] MEDS: Ferrous Sulfate TAB* 325 MG PO SCH ×2 (08:41→21:49)
[2016-12-11] MEDS: Lithium Carbonate ER* 450 MG TAB.ER PO SCH ×2 (08:41→21:49)
[2016-12-11] MEDS: clonazePAM TAB(*) 1 MG PO PRN ×2 (08:43→18:27)
[2016-12-11] MEDS: Nicotine Inhaler* 10 MG AMP INH PRN ×3 (08:44→21:53)
[2016-12-11] MEDS: OLANzapine TAB*ODT* 5 MG PO PRN (12:44)
[2016-12-11] MEDS: hydrOXYzine HCL TAB* 25 MG PO PRN (12:44)
[2016-12-11] MEDS: OLANzapine TAB*ODT* 5 MG PO SCH (21:49)
[2016-12-12] MEDS: Vitamin THERAPEUTIC TAB PO SCH (08:40)
[2016-12-12] MEDS: Ferrous Sulfate TAB* 325 MG PO SCH ×2 (08:40→20:05)
[2016-12-12] MEDS: Haloperidol TAB* 5 MG PO SCH (08:40)
[2016-12-12] MEDS: Lithium Carbonate ER* 450 MG TAB.ER PO SCH ×2 (08:41→20:05)
[2016-12-12] MEDS: clonazePAM TAB(*) 1 MG PO PRN ×2 (08:41→17:42)
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
[2016-12-12] MEDS: Nicotine Inhaler* 10 MG AMP INH PRN ×3 (11:28→22:12)
[2016-12-12] MEDS: hydrOXYzine HCL TAB* 25 MG PO PRN ×2 (11:29→20:07)
[2016-12-12] MEDS: OLANzapine TAB*ODT* 5 MG PO SCH (22:14)
[2016-12-12] MEDS: Ibuprofen TAB* 400 MG PO PRN (22:21)
[2016-12-13] MEDS: clonazePAM TAB(*) 1 MG PO PRN ×3 (02:38→20:26)
[2016-12-13] MEDS: Nicotine Inhaler* 10 MG AMP INH PRN ×2 (02:39→20:25)
[2016-12-13] MEDS: Ibuprofen TAB* 400 MG PO PRN ×2 (06:46→11:17)
[2016-12-13 07:24] LABS: HDL Cholesterol 50.1 mg/dL
[2016-12-13 07:27] LABS: Lithium 0.55 mmol/L (0.6-1.2)
[2016-12-13] MEDS: Haloperidol TAB* 5 MG PO SCH ×2 (09:25→11:16)
[2016-12-13] MEDS: Ferrous Sulfate TAB* 325 MG PO SCH ×3 (09:25→20:27)
[2016-12-13] MEDS: Vitamin THERAPEUTIC TAB PO SCH ×2 (09:25→11:15)
[2016-12-13] MEDS: Lithium Carbonate ER* 450 MG TAB.ER PO SCH ×3 (09:25→20:27)
[2016-12-13] MEDS: hydrOXYzine HCL TAB* 25 MG PO PRN (11:15)
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
[2016-12-13] MEDS: OLANzapine TAB*ODT* 5 MG PO SCH (20:27)
[2016-12-14] MEDS: Ibuprofen TAB* 400 MG PO PRN ×4 (08:41→21:05)
[2016-12-14] MEDS: Vitamin THERAPEUTIC TAB PO SCH (08:41)
[2016-12-14] MEDS: Ferrous Sulfate TAB* 325 MG PO SCH ×2 (08:41→22:00)
[2016-12-14] MEDS: Lithium Carbonate ER* 450 MG TAB.ER PO SCH ×2 (08:41→22:00)
[2016-12-14] MEDS: Haloperidol TAB* 5 MG PO SCH (08:41)
--- NOTE | 2016-12-14 11:47 | PN ---
MHU: Group Therapy Note - Service Type Service Type: [id number] Group Psychotherapy - Cognitive Behavioral Group Therapy ( CBT):Patient presented in CBT programming as disorganized and disruptive in discussion and needed repeated redirection to attend to presented materials.
[2016-12-14] MEDS: Acetaminophen TAB* 325 MG PO PRN ×3 (12:54→16:37)
[2016-12-14] MEDS: clonazePAM TAB(*) 1 MG PO PRN ×2 (12:54→21:04)
[2016-12-14] MEDS: OLANzapine TAB*ODT* 5 MG PO PRN (12:55)
[2016-12-14] MEDS ORDERED: Mouth Piece, Nicotine* 1 EACH CARTRIDGE ONE (13:09)
[2016-12-14] MEDS: Mouth Piece, Nicotine* 1 EACH CARTRIDGE INH SCH (13:10)
[2016-12-14] MEDS: Nicotine Inhaler* 10 MG AMP INH PRN ×2 (13:10→21:05)
[2016-12-14] MEDS: hydrOXYzine HCL TAB* 25 MG PO PRN (18:37)
[2016-12-14] MEDS: OLANzapine TAB*ODT* 5 MG PO SCH (22:00)
[2016-12-15] MEDS: hydrOXYzine HCL TAB* 25 MG PO PRN (00:59)
[2016-12-15] MEDS: Acetaminophen TAB* 325 MG PO PRN ×3 (01:00→18:17)
[2016-12-15] MEDS: OLANzapine TAB*ODT* 5 MG PO PRN (01:00)
[2016-12-15] MEDS: Haloperidol TAB* 5 MG PO SCH (08:36)
[2016-12-15] MEDS: Ferrous Sulfate TAB* 325 MG PO SCH ×2 (08:36→21:18)
[2016-12-15] MEDS: Lithium Carbonate ER* 450 MG TAB.ER PO SCH ×3 (08:36→21:19)
[2016-12-15] MEDS: Ibuprofen TAB* 400 MG PO PRN ×2 (08:37→17:55)
[2016-12-15] MEDS: Vitamin THERAPEUTIC TAB PO SCH (08:37)
[2016-12-15] MEDS: clonazePAM TAB(*) 1 MG PO PRN ×2 (11:36→21:19)
[2016-12-15] MEDS: Nicotine Inhaler* 10 MG AMP INH PRN ×2 (11:37→20:35)
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
[2016-12-15] MEDS: OLANzapine TAB*ODT* 5 MG PO SCH (21:18)
[2016-12-16] MEDS: Ibuprofen TAB* 400 MG PO PRN ×3 (02:16→18:03)
[2016-12-16] MEDS: Acetaminophen TAB* 325 MG PO PRN (02:16)
[2016-12-16] MEDS: Haloperidol TAB* 5 MG PO SCH (08:40)
[2016-12-16] MEDS: Ferrous Sulfate TAB* 325 MG PO SCH ×2 (08:40→20:01)
[2016-12-16] MEDS: Vitamin THERAPEUTIC TAB PO SCH (08:40)
[2016-12-16] MEDS: Lithium Carbonate ER* 450 MG TAB.ER PO SCH ×3 (08:40→20:02)
[2016-12-16] MEDS: clonazePAM TAB(*) 1 MG PO PRN (12:33)
[2016-12-16] MEDS: hydrOXYzine HCL TAB* 25 MG PO PRN ×2 (12:33→20:02)
[2016-12-16] MEDS: OLANzapine TAB*ODT* 5 MG PO PRN (18:03)
[2016-12-16] MEDS: Nicotine Inhaler* 10 MG AMP INH PRN (18:04)
[2016-12-16] MEDS: OLANzapine TAB*ODT* 5 MG PO SCH (20:02)
[2016-12-17] MEDS: clonazePAM TAB(*) 1 MG PO PRN ×2 (01:30→09:20)
[2016-12-17] MEDS: Al Hydrox/Mg Hydrox/Simet LIQ* 30 ML UDC PO PRN (01:30)
[2016-12-17] MEDS: Vitamin THERAPEUTIC TAB PO SCH (09:21)
[2016-12-17] MEDS: Lithium Carbonate ER* 450 MG TAB.ER PO SCH ×2 (09:21→14:30)
[2016-12-17] MEDS: Haloperidol TAB* 5 MG PO SCH (09:21)
[2016-12-17] MEDS: Ferrous Sulfate TAB* 325 MG PO SCH (09:21)
[2016-12-17] MEDS: Nicotine Inhaler* 10 MG AMP INH PRN ×3 (12:33→20:40)
[2016-12-17] MEDS: hydrOXYzine HCL TAB* 25 MG PO PRN (12:33)
[2016-12-17] MEDS: Ibuprofen TAB* 400 MG PO PRN ×2 (12:34→18:20)
[2016-12-17] MEDS: Acetaminophen TAB* 325 MG PO PRN ×2 (12:35→18:20)
--- NOTE | 2016-12-17 12:35 | PN ---
Subjective - Subjective Subjective: Pt. seen today for follow-up, was quite upset that she is being sent to the [facility]. Requested that I discharged her to home today. Accepted the fact that I would not send her home. She reports good sleep and appetite. Denies suicidal ideation. Did request a pass to go outside which was also denied secondary to concerns over pt. being a flight risk. Case discussed with Dr. Nguyễn Objective - Appearance Dysmorphic Features: No Hygiene: Normal Grooming: Disheveled - Behavior Psychomotor Activities: Normal Exhibits Abnormal Movement: No - Attitude and Relatedness Attitude and Relatedness: Superficially Cooperative Eye Contact: Fair - Speech Quality: Unpressured Latencies: Normal Quantity: Appropriate - Mood Patient's Decription of Mood: "Good" - Affect Observed Affect: Constricted Affect Consistent with: Dysphoria - Thought Process Thought Content: No Passive Wish, No Suicidal Planning, No Homicidal Ideation, No Paranoid Ideation - Sensorium Type of Hallucinations: Visual: No, Auditory: No, Command: No - Level of Consciousness Level of Consciousness: Alert Orientation: Yes Intact, Yes Orientated to Time, Yes Orientated to Place, Yes Orientated to Person - Impulse Control Impulse Control: Tenuous - Insight and Judgement Insight and Judgement: Fair Assessment - Assessment Inpatient DSM-IV Dx: Psychotic Disorder NOS. Mood disorder NOS. Schizoaffective Disorder by history. Amphetamine, cocaine and cannabinoid use disorders Plan - Plan Treatment Plan: Name: SAHARA MOE Birthdate: 1980 [id number] Medications: Current Medications Acetaminophen (Tylenol Tab*) 650 mg PO Q4H PRN PRN Reason: PAIN or TEMP > 101 F Last Admin: 12/16/16 02:16 Dose: 650 mg Al Hydrox/Mg Hydrox/Simethicone (Maalox Plus*) 30 ml PO Q4H PRN PRN Reason: INDIGESTION Last Admin: 12/17/16 01:30 Dose: 30 ml Cetirizine HCl (Zyrtec*) 5 mg PO DAILY PRN PRN Reason: Allergy Symptoms Last Admin: 12/07/16 20:53 Dose: 5 mg Clonazepam (Klonopin Tab(*)) 1 mg PO Q8H PRN PRN Reason: ANXIETY Last Admin: 12/17/16 09:20 Dose: 1 mg Device (Nicotine Mouth Piece*) 1 each INH .[facility] Last Admin: 12/14/16 13:10 Dose: 1 each Ferrous Sulfate (Ferrous Sulfate Tab*) 325 mg PO BID [facility] Last Admin: 12/17/16 09:21 Dose: 325 mg Haloperidol (Haldol Tab*) 5 mg PO DAILY [facility] Last Admin: 12/17/16 09:21 Dose: 5 mg Hydroxyzine HCl (Atarax Tab*) 25 mg PO Q6H PRN PRN Reason: ANXIETY Last Admin: 12/16/16 20:02 Dose: 25 mg Ibuprofen (Motrin Tab*) 400 mg PO Q6H PRN PRN Reason: PAIN Last Admin: 12/16/16 18:03 Dose: 400 mg [place] Carbonate ([place] Carbonate Er Tab*) 450 mg PO TID [facility] Last Admin: 12/17/16 09:21 Dose: 450 mg Multivitamins (Theragran Tab*) 1 tab PO DAILY [facility] Last Admin: 12/17/16 09:21 Dose: 1 tab Nicotine (Nicotine Inhaler*) 10 mg INH Q2H PRN PRN Reason: CRAVING Last Admin: 12/16/16 18:04 Dose: 10 mg Nicotine Polacrilex (Nicotine Gum*) 2 mg PO Q2H PRN PRN Reason: CRAVING Last Admin: 11/25/16 14:19 Dose: 2 mg Olanzapine (Zyprexa * Tab Odt) 5 mg PO Q6H PRN PRN Reason: AGITATION Last Admin: 12/16/16 18:03 Dose: 5 mg Olanzapine (Zyprexa * Tab Odt) 20 mg PO 2100 [facility] Last Admin: 12/16/16 20:02 Dose: 20 mg
[2016-12-18] MEDS: Lithium Carbonate ER* 450 MG TAB.ER PO SCH ×4 (01:16→20:28)
[2016-12-18] MEDS: OLANzapine TAB*ODT* 5 MG PO SCH ×2 (01:16→20:29)
[2016-12-18] MEDS: Ferrous Sulfate TAB* 325 MG PO SCH ×3 (01:16→20:25)
[2016-12-18] MEDS: clonazePAM TAB(*) 1 MG PO PRN ×2 (01:18→20:30)
[2016-12-18] MEDS: hydrOXYzine HCL TAB* 25 MG PO PRN (01:19)
[2016-12-18] MEDS: Nicotine Inhaler* 10 MG AMP INH PRN ×3 (01:45→20:30)
[2016-12-18] MEDS: Vitamin THERAPEUTIC TAB PO SCH (09:31)
[2016-12-18] MEDS: Haloperidol TAB* 5 MG PO SCH (09:31)
[2016-12-18] MEDS: Ibuprofen TAB* 400 MG PO PRN (12:36)
[2016-12-18] MEDS: Acetaminophen TAB* 325 MG PO PRN ×2 (12:36→18:16)
--- NOTE | 2016-12-18 12:44 | PN ---
Subjective - Subjective Subjective: Today, Radha is most concerned with a toothache- left lower side of jaw. Examined oral cavity at this time. Exam was somewhat limited by residual food in lower left side of jaw. Pt. encouraged to attend to oral hygiene, including flossing. No overt erythema or drainage noted. She reports that it has been present for the past two days. She is reporting good sleep and appetite, and mood. Nursing staff have reported that she is PO medication compliant. Case reviewed with Dr. Nguyễn. Objective - Appearance Dysmorphic Features: No Hygiene: Normal Grooming: Fairly Well Kept - Behavior Psychomotor Activities: Normal Exhibits Abnormal Movement: No - Attitude and Relatedness Attitude and Relatedness: Cooperative Eye Contact: Good - Speech Quality: Unpressured Latencies: Normal Quantity: Appropriate - Mood Patient's Decription of Mood: "Good" - Affect Observed Affect: Unvariable Affect Consistent with: Dysphoria - Thought Process Patient's Thought Process: Coherent Thought Content: No Passive Wish, No Suicidal Planning, No Homicidal Ideation, No Paranoid Ideation - Sensorium Experiencing Hallucinations: No, Sensorium is Clear Type of Hallucinations: Visual: No, Auditory: No, Command: No - Level of Consciousness Level of Consciousness: Alert Orientation: Yes Intact, Yes Orientated to Time, Yes Orientated to Place, Yes Orientated to Person - Impulse Control Impulse Control: Tenuous - Insight and Judgement Insight and Judgement: Fair Assessment - Assessment Inpatient DSM-IV Dx: Psychotic Disorder NOS. Mood disorder NOS. Schizoaffective Disorder by history. Amphetamine, cocaine and cannabinoid use disorders Plan - Plan Treatment Plan: Name: RADHA MOE Birthdate: 1980 [id number] Medications: Current Medications Acetaminophen (Tylenol Tab*) 650 mg PO Q4H PRN PRN Reason: PAIN or TEMP > 101 F Last Admin: 12/18/16 12:36 Dose: 650 mg Al Hydrox/Mg Hydrox/Simethicone (Maalox Plus*) 30 ml PO Q4H PRN PRN Reason: INDIGESTION Last Admin: 12/17/16 01:30 Dose: 30 ml Cetirizine HCl (Zyrtec*) 5 mg PO DAILY PRN PRN Reason: Allergy Symptoms Last Admin: 12/07/16 20:53 Dose: 5 mg Clonazepam (Klonopin Tab(*)) 1 mg PO Q8H PRN PRN Reason: ANXIETY Last Admin: 12/18/16 01:18 Dose: 1 mg Device (Nicotine Mouth Piece*) 1 each INH .[facility] Last Admin: 12/14/16 13:10 Dose: 1 each Ferrous Sulfate (Ferrous Sulfate Tab*) 325 mg PO BID [facility] Last Admin: 12/18/16 09:31 Dose: 325 mg Haloperidol (Haldol Tab*) 5 mg PO DAILY [facility] Last Admin: 12/18/16 09:31 Dose: 5 mg Hydroxyzine HCl (Atarax Tab*) 25 mg PO Q6H PRN PRN Reason: ANXIETY Last Admin: 12/18/16 01:19 Dose: 25 mg Ibuprofen (Motrin Tab*) 400 mg PO Q6H PRN PRN Reason: PAIN Last Admin: 12/18/16 12:36 Dose: 400 mg [place] Carbonate ([place] Carbonate Er Tab*) 450 mg PO TID [facility] Last Admin: 12/18/16 09:31 Dose: 450 mg Multivitamins (Theragran Tab*) 1 tab PO DAILY [facility] Last Admin: 12/18/16 09:31 Dose: 1 tab Nicotine (Nicotine Inhaler*) 10 mg INH Q2H PRN PRN Reason: CRAVING Last Admin: 12/18/16 01:45 Dose: 10 mg Nicotine Polacrilex (Nicotine Gum*) 2 mg PO Q2H PRN PRN Reason: CRAVING Last Admin: 11/25/16 14:19 Dose: 2 mg Olanzapine (Zyprexa * Tab Odt) 5 mg PO Q6H PRN PRN Reason: AGITATION Last Admin: 12/16/16 18:03 Dose: 5 mg Olanzapine (Zyprexa * Tab Odt) 20 mg PO 2100 [facility] Last Admin: 12/18/16 01:16 Dose: 20 mg
[2016-12-18] MEDS: Ibuprofen TAB* 800 MG PO PRN (16:01)
[2016-12-18] MEDS: Benzocaine (DENTAL) 7.5%* 10 GM TOP.GEL TOPICAL PRN (21:25)
[2016-12-19] MEDS: Ibuprofen TAB* 800 MG PO PRN ×3 (00:31→23:14)
[2016-12-19] MEDS: Acetaminophen TAB* 325 MG PO PRN ×2 (00:31→16:13)
[2016-12-19] MEDS: Lithium Carbonate ER* 450 MG TAB.ER PO SCH ×3 (09:07→21:04)
[2016-12-19] MEDS: Ferrous Sulfate TAB* 325 MG PO SCH ×2 (09:08→21:05)
[2016-12-19] MEDS: Haloperidol TAB* 5 MG PO SCH (09:08)
[2016-12-19] MEDS: Vitamin THERAPEUTIC TAB PO SCH (09:08)
[2016-12-19] MEDS: clonazePAM TAB(*) 1 MG PO PRN ×2 (09:13→21:05)
[2016-12-19] MEDS: Nicotine Inhaler* 10 MG AMP INH PRN ×3 (09:13→23:14)
[2016-12-19] MEDS: Benzocaine (DENTAL) 7.5%* 10 GM TOP.GEL TOPICAL PRN (16:13)
--- NOTE | 2016-12-19 16:15 | PN ---
Subjective - Subjective Service Type: 57625 Hosp care 15 min low complexity Subjective: Radha asked today for staff pass and for guidance on what she needs to do to not go to the [facility]. She denied to me that the cloth finishing range operator chief found by staff atop a light fixture in her bathroom Objective - Appearance Appearance: Well Developed/Nourished Dysmorphic Features: No Hygiene: Normal Grooming: Fairly Well Kept - Behavior Psychomotor Activities: Normal Exhibits Abnormal Movement: No - Attitude and Relatedness Attitude and Relatedness: Cooperative Eye Contact: Good - Speech Quality: Unpressured Latencies: Normal Quantity: Appropriate - Mood Patient's Decription of Mood: "Okay" - Affect Observed Affect: Fair Affect Consistent with: Dysphoria - mild - Thought Process Patient's Thought Process: Coherent, Goal Directed Thought Content: No Passive Wish, No Suicidal Planning, No Homicidal Ideation, No Paranoid Ideation - Sensorium Experiencing Hallucinations: No, Sensorium is Clear Type of Hallucinations: Visual: No, Auditory: No, Command: No - Level of Consciousness Level of Consciousness: Alert Orientation: Yes Intact, Yes Orientated to Time, Yes Orientated to Place, Yes Orientated to Person - Impulse Control Impulse Control: Intact - Insight and Judgement Insight and Judgement: Poor - Group Participation Particating in Group Activities: Yes - Medication Management Medication Management Adherence: Yes Assessment - Assessment Merits Inpatient Hospitalization: For Stabilization, Consolidate Improvements, For Discharge Planning Inpatient DSM-IV Dx: Psychotic Disorder NOS. Mood disorder NOS. Schizoaffective Disorder by history. Amphetamine, cocaine and cannabinoid use disorders Clinical Impression: Ms. Ramirez is a 36-year-old, -[place] woman who has returned to the emergency department seven days after being discharged from the [facility] to which she had been transferred after presenting here on the 12 of November with report of paranoid ideation and homicidal and suicidal ideation. She has evidently returned to a similar frame of mind shortly following discharge from the [facility]. She has required already on the unit chemical restraint for agitation with threatening behavior. We will be awaiting her to be able to take a more collaborative stance toward assessment and treatment to go forward with care here. Once that occurs, we will attempt to gather more history and mental status reports from her, and we will attempt to obtain releases to obtain discharge summaries and to communicate with those who have provided care for her in the community and perhaps also family members or familiars in the community. The presence of amphetamine and cocaine in her system could be the explanation for her paranoia and homicidal ideation, or this intoxication may be only exacerbating a chronic psychotic disorder. We will resume Zyprexa against psychosis, with Ativan and Seroquel as needed for anxiety and agitation. 17: Radha remains paranoid and disorganized. She refuses to rise from bed to sit with me to report further history. She requests ibuprofen for pain. She has been taking her HCTZ and FeSO4, also Ativan prn, but has refused Seroquel prn. She did receive 5 mg haloperidol and 50 mg diphenhydramine IM yesterday, and an additional IM of 1 mg lorazepam to po doses taken. 43.17 Radha is able to sit and talk now. She still demonstrates no insight into her agitated presentation and her history of paranoid psychosis with SI and HI. She asks for discharge, but she would not be very likely to maintain stability following discharge yet. We will be looking to gather more collateral, though she declined again with me to allow us to get the discharge summary from [facility]. 417 Radha remains calmer, but still with limited insight into circumstances preceding hospitalization, versus guarded presentation. Med compliant. Not attending groups. Family meeting tomorrow. 4.5.17 Radha agrees to what may be informative collateral from [facility]. Sister reports family history of schizophrenia, patient's history of no psychosis before recent weeks/months, past history of depressive illness, difficult adolescence with childbirth at 18 and of mother. Discussed past trials of lithium, but Radha chose to continue on Zyprexa only, with understanding that it can be effective against acute zoey: refused increased dose. 4.6.17 Normotensive on all checks while refusing HCTZ: D/C HCTZ. Taking Zyprexa, with psychosis clearing. Still sleeping most of the day, or at least lying down with eyes closed in room or in milieu. Collateral from [facility] gives no clarifying history: await reports from [facility] to help with question of whether recent psychosis may have been due to amphetamine abuse or is chronic condition. Radha remains paranoid/guarded and does not help clarify this with report of her history, unsure if this is due to incapacity or choice. If trend of clearing psychosis with remitted dangerous intent/plan holds and improves, may be ready for stable discharge early next week. Refused increased Zyprexa dose or initiation of lithium, which in yesterday's meeting she said she had taken in the past, raising suspicion for history of bipolar illness. 12.19.16 Radha seeks staff pass. She will be granted 30 minute checks if she attends groups responsibly. She remains on track to the [facility] for now. Plan - Plan Treatment Plan: Name: RADHA RAMIREZ Birthdate: 1980 [id number] Continue current meds. Monitor MS and safety. Encourage groups and milieu. Plan toward transfer to [facility]. Medications: Current Medications Acetaminophen (Tylenol Tab*) 650 mg PO Q4H PRN PRN Reason: PAIN or TEMP > 101 F Last Admin: 12/19/16 00:31 Dose: 650 mg Al Hydrox/Mg Hydrox/Simethicone (Maalox Plus*) 30 ml PO Q4H PRN PRN Reason: INDIGESTION Last Admin: 12/17/16 01:30 Dose: 30 ml Benzocaine (Baby Orajel 7.5%*) 1 applic TOPICAL QID PRN PRN Reason: oral pain Last Admin: 12/18/16 21:25 Dose: 1 apply Cetirizine HCl (Zyrtec*) 5 mg PO DAILY PRN PRN Reason: Allergy Symptoms Last Admin: 12/07/16 20:53 Dose: 5 mg Clonazepam (Klonopin Tab(*)) 1 mg PO Q8H PRN PRN Reason: ANXIETY Last Admin: 12/19/16 09:13 Dose: 1 mg Device (Nicotine Mouth Piece*) 1 each INH .[facility] Last Admin: 12/14/16 13:10 Dose: 1 each Ferrous Sulfate (Ferrous Sulfate Tab*) 325 mg PO BID [facility] Last Admin: 12/19/16 09:08 Dose: 325 mg Haloperidol (Haldol Tab*) 5 mg PO DAILY [facility] Last Admin: 12/19/16 09:08 Dose: 5 mg Hydroxyzine HCl (Atarax Tab*) 25 mg PO Q6H PRN PRN Reason: ANXIETY Last Admin: 12/18/16 01:19 Dose: 25 mg Ibuprofen (Motrin Tab*) 800 mg PO Q8H PRN PRN Reason: PAIN Last Admin: 12/19/16 09:13 Dose: 800 mg [place] Carbonate ([place] Carbonate Er Tab*) 450 mg PO TID [facility] Last Admin: 12/19/16 13:51 Dose: 450 mg Multivitamins (Theragran Tab*) 1 tab PO DAILY [facility] Last Admin: 12/19/16 09:08 Dose: 1 tab Nicotine (Nicotine Inhaler*) 10 mg INH Q2H PRN PRN Reason: CRAVING Last Admin: 12/19/16 09:13 Dose: 10 mg Nicotine Polacrilex (Nicotine Gum*) 2 mg PO Q2H PRN PRN Reason: CRAVING Last Admin: 11/25/16 14:19 Dose: 2 mg Olanzapine (Zyprexa * Tab Odt) 5 mg PO Q6H PRN PRN Reason: AGITATION Last Admin: 12/16/16 18:03 Dose: 5 mg Olanzapine (Zyprexa * Tab Odt) 20 mg PO 2100 [facility] Last Admin: 12/18/16 20:29 Dose: 20 mg - Discharge Plan Discharge Plan: Consider Longer Term Tx
[2016-12-19] MEDS: OLANzapine TAB*ODT* 5 MG PO SCH (21:05)
[2016-12-19] MEDS: hydrOXYzine HCL TAB* 25 MG PO PRN (23:14)
[2016-12-20] MEDS: Nicotine Inhaler* 10 MG AMP INH PRN ×2 (09:29→12:48)
[2016-12-20] MEDS: Vitamin THERAPEUTIC TAB PO SCH (10:35)
[2016-12-20] MEDS: Haloperidol TAB* 5 MG PO SCH (10:35)
[2016-12-20] MEDS: Ferrous Sulfate TAB* 325 MG PO SCH ×2 (10:36→20:37)
[2016-12-20] MEDS: Lithium Carbonate ER* 450 MG TAB.ER PO SCH ×3 (10:36→20:36)
[2016-12-20] MEDS: Ibuprofen TAB* 800 MG PO PRN (12:48)
[2016-12-20] MEDS: clonazePAM TAB(*) 1 MG PO PRN (16:05)
[2016-12-20] MEDS: hydrOXYzine HCL TAB* 25 MG PO PRN (17:30)
[2016-12-20] MEDS: OLANzapine TAB*ODT* 10 MG TAB PO SCH (20:39)
[2016-12-21] MEDS: clonazePAM TAB(*) 1 MG PO PRN ×3 (00:50→20:48)
[2016-12-21] MEDS: hydrOXYzine HCL TAB* 25 MG PO PRN ×3 (00:50→20:49)
[2016-12-21] MEDS: Lithium Carbonate ER* 450 MG TAB.ER PO SCH ×3 (09:41→21:22)
[2016-12-21] MEDS: Vitamin THERAPEUTIC TAB PO SCH (09:41)
[2016-12-21] MEDS: Ferrous Sulfate TAB* 325 MG PO SCH ×2 (09:41→21:21)
[2016-12-21] MEDS: Haloperidol TAB* 5 MG PO SCH (09:41)
--- NOTE | 2016-12-21 11:00 | PN ---
Subjective - Subjective Service Type: 40809 Hosp care 25 min moderate complexity Subjective: Radha says today that she feels she could safely discharge into an independent living situation. She has asked if she can change her mind about going to the [facility]. Objective - Appearance Appearance: Well Developed/Nourished Dysmorphic Features: No Hygiene: Normal Grooming: Fairly Well Kept - Behavior Psychomotor Activities: Normal Exhibits Abnormal Movement: No - Attitude and Relatedness Attitude and Relatedness: Cooperative Eye Contact: Good - Speech Quality: Unpressured Latencies: Normal Quantity: Appropriate - slightly slurred, likely medication side effect - Mood Patient's Decription of Mood: "Fine" - Affect Observed Affect: Fair Affect Consistent with: Euthymia - Thought Process Patient's Thought Process: Coherent, Goal Directed Thought Content: No Passive Wish, No Suicidal Planning, No Homicidal Ideation, No Paranoid Ideation - Sensorium Experiencing Hallucinations: No, Sensorium is Clear Type of Hallucinations: Visual: No, Auditory: No, Command: No - Level of Consciousness Level of Consciousness: Alert Orientation: Yes Intact, Yes Orientated to Time, Yes Orientated to Place, Yes Orientated to Person - Impulse Control Impulse Control: Intact - Insight and Judgement Insight and Judgement: Poor - Group Participation Particating in Group Activities: Yes - Medication Management Medication Management Adherence: Yes Assessment - Assessment Merits Inpatient Hospitalization: For Stabilization, For Discharge Planning Inpatient DSM-IV Dx: Psychotic Disorder NOS. Mood disorder NOS. Schizoaffective Disorder by history. Amphetamine, cocaine and cannabinoid use disorders Clinical Impression: Ms. Ramirez is a 36-year-old, -[place] woman who has returned to the emergency department seven days after being discharged from the [facility] to which she had been transferred after presenting here on the 12 of November with report of paranoid ideation and homicidal and suicidal ideation. She has evidently returned to a similar frame of mind shortly following discharge from the [facility]. She has required already on the unit chemical restraint for agitation with threatening behavior. We will be awaiting her to be able to take a more collaborative stance toward assessment and treatment to go forward with care here. Once that occurs, we will attempt to gather more history and mental status reports from her, and we will attempt to obtain releases to obtain discharge summaries and to communicate with those who have provided care for her in the community and perhaps also family members or familiars in the community. The presence of amphetamine and cocaine in her system could be the explanation for her paranoia and homicidal ideation, or this intoxication may be only exacerbating a chronic psychotic disorder. We will resume Zyprexa against psychosis, with Ativan and Seroquel as needed for anxiety and agitation. 17: Radha remains paranoid and disorganized. She refuses to rise from bed to sit with me to report further history. She requests ibuprofen for pain. She has been taking her HCTZ and FeSO4, also Ativan prn, but has refused Seroquel prn. She did receive 5 mg haloperidol and 50 mg diphenhydramine IM yesterday, and an additional IM of 1 mg lorazepam to po doses taken. 4.17 Radha is able to sit and talk now. She still demonstrates no insight into her agitated presentation and her history of paranoid psychosis with SI and HI. She asks for discharge, but she would not be very likely to maintain stability following discharge yet. We will be looking to gather more collateral, though she declined again with me to allow us to get the discharge summary from [facility]. 17 Radha remains calmer, but still with limited insight into circumstances preceding hospitalization, versus guarded presentation. Med compliant. Not attending groups. Family meeting tomorrow. 11.30.17 Radha agrees to what may be informative collateral from [facility]. Sister reports family history of schizophrenia, patient's history of no psychosis before recent weeks/months, past history of depressive illness, difficult adolescence with childbirth at 18 and of mother. Discussed past trials of lithium, but Radha chose to continue on Zyprexa only, with understanding that it can be effective against acute zoey: refused increased dose. 6.17 Normotensive on all checks while refusing HCTZ: D/C HCTZ. Taking Zyprexa, with psychosis clearing. Still sleeping most of the day, or at least lying down with eyes closed in room or in milieu. Collateral from [facility] gives no clarifying history: await reports from [facility] to help with question of whether recent psychosis may have been due to amphetamine abuse or is chronic condition. Radha remains paranoid/guarded and does not help clarify this with report of her history, unsure if this is due to incapacity or choice. If trend of clearing psychosis with remitted dangerous intent/plan holds and improves, may be ready for stable discharge early next week. Refused increased Zyprexa dose or initiation of lithium, which in yesterday's meeting she said she had taken in the past, raising suspicion for history of bipolar illness. 12.19.16 Radha seeks staff pass. She will be granted 30 minute checks if she attends groups responsibly. She remains on track to the [facility] for now. 12.21.16 Radha has asked today if she can changer her mind about going to the [facility] for continued care. I explained that given the severity of her symptoms leading to and well into this admission, and given the lack of a stable disposition such that the likelihood of relapse due to inadequate supports, I feel she would do best to transfer to the [facility] as planned. 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 Plan - Plan Treatment Plan: Name: RADHA RAMIREZ Birthdate: 1980 [id number] Continue current meds, but d/c ibuprofen. Monitor MS and safety. Encourage groups and milieu. Plan toward transfer to [facility]. Medications: Current Medications Acetaminophen (Tylenol Tab*) 650 mg PO Q4H PRN PRN Reason: PAIN or TEMP > 101 F Last Admin: 12/19/16 16:13 Dose: 650 mg Al Hydrox/Mg Hydrox/Simethicone (Maalox Plus*) 30 ml PO Q4H PRN PRN Reason: INDIGESTION Last Admin: 12/17/16 01:30 Dose: 30 ml Benzocaine (Baby Orajel 7.5%*) 1 applic TOPICAL QID PRN PRN Reason: oral pain Last Admin: 12/19/16 16:13 Dose: 1 apply Cetirizine HCl (Zyrtec*) 5 mg PO DAILY PRN PRN Reason: Allergy Symptoms Last Admin: 12/07/16 20:53 Dose: 5 mg Clonazepam (Klonopin Tab(*)) 1 mg PO Q8H PRN PRN Reason: ANXIETY Last Admin: 12/21/16 00:50 Dose: 1 mg Device (Nicotine Mouth Piece*) 1 each INH .CARTRIDGE ON LICENSE OF [facility] Last Admin: 12/14/16 13:10 Dose: 1 each Ferrous Sulfate (Ferrous Sulfate Tab*) 325 mg PO BID ON LICENSE OF [facility] Last Admin: 12/21/16 09:41 Dose: 325 mg Haloperidol (Haldol Tab*) 5 mg PO DAILY ON LICENSE OF [facility] Last Admin: 12/21/16 09:41 Dose: 5 mg Hydroxyzine HCl (Atarax Tab*) 25 mg PO Q6H PRN PRN Reason: ANXIETY Last Admin: 12/21/16 00:50 Dose: 25 mg Ibuprofen (Motrin Tab*) 800 mg PO Q8H PRN PRN Reason: PAIN Last Admin: 12/20/16 12:48 Dose: 800 mg [place] Carbonate ([place] Carbonate Er Tab*) 450 mg PO TID ON LICENSE OF [facility] Last Admin: 12/21/16 09:41 Dose: 450 mg Multivitamins (Theragran Tab*) 1 tab PO DAILY ON LICENSE OF [facility] Last Admin: 12/21/16 09:41 Dose: 1 tab Nicotine (Nicotine Inhaler*) 10 mg INH Q2H PRN PRN Reason: CRAVING Last Admin: 12/20/16 12:48 Dose: 10 mg Nicotine Polacrilex (Nicotine Gum*) 2 mg PO Q2H PRN PRN Reason: CRAVING Last Admin: 11/25/16 14:19 Dose: 2 mg Olanzapine (Zyprexa * Tab Odt) 5 mg PO Q6H PRN PRN Reason: AGITATION Last Admin: 12/16/16 18:03 Dose: 5 mg Olanzapine (Zyprexa *Odt*) 20 mg PO 2100 ON LICENSE OF [facility] Last Admin: 12/20/16 20:39 Dose: 20 mg - Discharge Plan Discharge Plan: Outpatient Follow Up
[2016-12-21] MEDS: Nicotine Inhaler* 10 MG AMP INH PRN ×2 (11:17→20:48)
[2016-12-21] MEDS: Acetaminophen TAB* 325 MG PO PRN (17:46)
[2016-12-21] MEDS: Benzocaine (DENTAL) 7.5%* 10 GM TOP.GEL TOPICAL PRN (17:47)
[2016-12-21] MEDS: OLANzapine TAB*ODT* 10 MG TAB PO SCH (21:21)
[2016-12-22] MEDS: Ibuprofen TAB* 800 MG PO PRN ×2 (01:03→17:29)
[2016-12-22] MEDS: Ferrous Sulfate TAB* 325 MG PO SCH ×2 (09:54→20:37)
[2016-12-22] MEDS: Haloperidol TAB* 5 MG PO SCH (09:54)
[2016-12-22] MEDS: Lithium Carbonate ER* 450 MG TAB.ER PO SCH ×3 (09:54→20:37)
[2016-12-22] MEDS: Vitamin THERAPEUTIC TAB PO SCH (09:54)
[2016-12-22] MEDS: Nicotine Inhaler* 10 MG AMP INH PRN ×4 (10:21→22:22)
--- NOTE | 2016-12-22 11:57 | PN ---
MHU: Group Therapy Note - Service Type Service Type: 25961 Group Psychotherapy - Cognitive Behavioral Group Note: Radha attended cbt and participated appropriately, reamaining in good behavioral control throughout. She initiated topical discussion at times, including asking why treatment team would not therese her staff pass. She responded to feedback regarding recent aggressions towards staff appropriately, and denied having intentions of engaging in physical aggression again, and denied intent to run, stating she could not go far without any money.
[2016-12-22] MEDS: clonazePAM TAB(*) 1 MG PO PRN ×2 (13:16→22:22)
[2016-12-22] MEDS: hydrOXYzine HCL TAB* 25 MG PO PRN ×2 (13:16→22:23)
[2016-12-22] MEDS: Benzocaine (DENTAL) 7.5%* 10 GM TOP.GEL TOPICAL PRN (18:14)
[2016-12-22] MEDS: OLANzapine TAB*ODT* 10 MG TAB PO SCH (20:37)
[2016-12-23] MEDS: Ferrous Sulfate TAB* 325 MG PO SCH ×2 (09:53→20:54)
[2016-12-23] MEDS: Lithium Carbonate ER* 450 MG TAB.ER PO SCH ×3 (09:53→20:54)
[2016-12-23] MEDS: Vitamin THERAPEUTIC TAB PO SCH (09:54)
[2016-12-23] MEDS: Haloperidol TAB* 5 MG PO SCH (09:54)
[2016-12-23] MEDS: Nicotine Inhaler* 10 MG AMP INH PRN ×2 (10:17→18:24)
[2016-12-23] MEDS: Ibuprofen TAB* 800 MG PO PRN (14:08)
--- NOTE | 2016-12-23 14:55 | PN ---
MHU: Group Therapy Note - Service Type Service Type: 36156 Group Psychotherapy - Cognitive Behavioral Group Therapy ( CBT):Patient presented in CBT programming as disorganized and disruptive in discussion and needed repeated redirection to attend to presented materials.
--- NOTE | 2016-12-23 18:48 | PN ---
Subjective - Subjective Service Type: 32011 Hosp care 15 min low complexity Subjective: Sunni has no complaints today aside from awakening in the night. She is cheerful on approach, and cooperative with care. Objective - Appearance Appearance: Well Developed/Nourished Dysmorphic Features: No Hygiene: Normal Grooming: Well Kept - Behavior Psychomotor Activities: Normal Exhibits Abnormal Movement: No - Attitude and Relatedness Attitude and Relatedness: Well Related Eye Contact: Good - Speech Quality: Unpressured Latencies: Normal Quantity: Appropriate - Mood Patient's Decription of Mood: "Fine" - Affect Observed Affect: Good Affect Consistent with: Euthymia - Thought Process Patient's Thought Process: Coherent, Goal Directed Thought Content: No Passive Wish, No Suicidal Planning, No Homicidal Ideation, No Paranoid Ideation - Sensorium Experiencing Hallucinations: No, Sensorium is Clear Type of Hallucinations: Visual: No, Auditory: No, Command: No - Level of Consciousness Level of Consciousness: Alert Orientation: Yes Intact, Yes Orientated to Time, Yes Orientated to Place, Yes Orientated to Person - Insight and Judgement Insight and Judgement: Fair - Group Participation Particating in Group Activities: No Group Participation Comments: declined groups today - Medication Management Medication Management Adherence: Yes Assessment - Assessment Merits Inpatient Hospitalization: For Stabilization, For Discharge Planning Inpatient DSM-IV Dx: Psychotic Disorder NOS. Mood disorder NOS. Schizoaffective Disorder by history. Amphetamine, cocaine and cannabinoid use disorders Clinical Impression: Ms. Ramirez is a 36-year-old, -[place] woman who has returned to the emergency department seven days after being discharged from the [facility] to which she had been transferred after presenting here on the 12 of November with report of paranoid ideation and homicidal and suicidal ideation. She has evidently returned to a similar frame of mind shortly following discharge from the [facility]. She has required already on the unit chemical restraint for agitation with threatening behavior. We will be awaiting her to be able to take a more collaborative stance toward assessment and treatment to go forward with care here. Once that occurs, we will attempt to gather more history and mental status reports from her, and we will attempt to obtain releases to obtain discharge summaries and to communicate with those who have provided care for her in the community and perhaps also family members or familiars in the community. The presence of amphetamine and cocaine in her system could be the explanation for her paranoia and homicidal ideation, or this intoxication may be only exacerbating a chronic psychotic disorder. We will resume Zyprexa against psychosis, with Ativan and Seroquel as needed for anxiety and agitation. 17: Sunin remains paranoid and disorganized. She refuses to rise from bed to sit with me to report further history. She requests ibuprofen for pain. She has been taking her HCTZ and FeSO4, also Ativan prn, but has refused Seroquel prn. She did receive 5 mg haloperidol and 50 mg diphenhydramine IM yesterday, and an additional IM of 1 mg lorazepam to po doses taken. 417 Sunni is able to sit and talk now. She still demonstrates no insight into her agitated presentation and her history of paranoid psychosis with SI and HI. She asks for discharge, but she would not be very likely to maintain stability following discharge yet. We will be looking to gather more collateral, though she declined again with me to allow us to get the discharge summary from [facility]. 17 Sunni remains calmer, but still with limited insight into circumstances preceding hospitalization, versus guarded presentation. Med compliant. Not attending groups. Family meeting tomorrow. 11.30.17 Sunni agrees to what may be informative collateral from [facility]. Sister reports family history of schizophrenia, patient's history of no psychosis before recent weeks/months, past history of depressive illness, difficult adolescence with childbirth at 18 and of mother. Discussed past trials of lithium, but Sunni chose to continue on Zyprexa only, with understanding that it can be effective against acute zoey: refused increased dose. 12.01.17 Normotensive on all checks while refusing HCTZ: D/C HCTZ. Taking Zyprexa, with psychosis clearing. Still sleeping most of the day, or at least lying down with eyes closed in room or in milieu. Collateral from [facility] gives no clarifying history: await reports from [facility] to help with question of whether recent psychosis may have been due to amphetamine abuse or is chronic condition. Sunni remains paranoid/guarded and does not help clarify this with report of her history, unsure if this is due to incapacity or choice. If trend of clearing psychosis with remitted dangerous intent/plan holds and improves, may be ready for stable discharge early next week. Refused increased Zyprexa dose or initiation of lithium, which in yesterday's meeting she said she had taken in the past, raising suspicion for history of bipolar illness. 12.19. Sunni seeks staff pass. She will be granted 30 minute checks if she attends groups responsibly. She remains on track to the [facility] for now. 12.21. Sunni has asked today if she can changer her mind about going to the [facility] for continued care. I explained that given the severity of her symptoms leading to and well into this admission, and given the lack of a stable disposition such that the likelihood of relapse due to inadequate supports, I feel she would do best to transfer to the [facility] as planned. 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 12.23.16 sunni complains today of awakening in the night. She is already taking multiple sedating medications, and i have explained to her I will defer for now adding another one. She remains on track to long-term care. Plan - Plan Treatment Plan: Name: SUNNI RAMIREZ Birthdate: 1980 [id number] Continue current meds. Monitor MS and safety. Encourage groups and milieu. Plan toward transfer to [facility]. Medications: Current Medications Acetaminophen (Tylenol Tab*) 650 mg PO Q4H PRN PRN Reason: PAIN or TEMP > 101 F Last Admin: 12/21/16 17:46 Dose: 650 mg Al Hydrox/Mg Hydrox/Simethicone (Maalox Plus*) 30 ml PO Q4H PRN PRN Reason: INDIGESTION Last Admin: 12/17/16 01:30 Dose: 30 ml Benzocaine (Baby Orajel 7.5%*) 1 applic TOPICAL QID PRN PRN Reason: oral pain Last Admin: 12/22/16 18:14 Dose: 1 apply Cetirizine HCl (Zyrtec*) 5 mg PO DAILY PRN PRN Reason: Allergy Symptoms Last Admin: 12/07/16 20:53 Dose: 5 mg Clonazepam (Klonopin Tab(*)) 1 mg PO Q8H PRN PRN Reason: ANXIETY Last Admin: 12/22/16 22:22 Dose: 1 mg Device (Nicotine Mouth Piece*) 1 each INH .CARTRIDGE ON LICENSE OF [facility] Last Admin: 12/14/16 13:10 Dose: 1 each Ferrous Sulfate (Ferrous Sulfate Tab*) 325 mg PO BID ON LICENSE OF [facility] Last Admin: 12/23/16 09:53 Dose: 325 mg Haloperidol (Haldol Tab*) 5 mg PO DAILY ON LICENSE OF [facility] Last Admin: 12/23/16 09:54 Dose: 5 mg Hydroxyzine HCl (Atarax Tab*) 25 mg PO Q6H PRN PRN Reason: ANXIETY Last Admin: 12/22/16 22:23 Dose: 25 mg Ibuprofen (Motrin Tab*) 800 mg PO Q8H PRN PRN Reason: PAIN Last Admin: 12/23/16 14:08 Dose: 800 mg [place] Carbonate ([place] Carbonate Er Tab*) 450 mg PO TID ON LICENSE OF [facility] Last Admin: 12/23/16 14:07 Dose: 450 mg Multivitamins (Theragran Tab*) 1 tab PO DAILY ON LICENSE OF [facility] Last Admin: 12/23/16 09:54 Dose: 1 tab Nicotine (Nicotine Inhaler*) 10 mg INH Q2H PRN PRN Reason: CRAVING Last Admin: 12/23/16 18:24 Dose: 10 mg Nicotine Polacrilex (Nicotine Gum*) 2 mg PO Q2H PRN PRN Reason: CRAVING Last Admin: 11/25/16 14:19 Dose: 2 mg Olanzapine (Zyprexa * Tab Odt) 5 mg PO Q6H PRN PRN Reason: AGITATION Last Admin: 12/16/16 18:03 Dose: 5 mg Olanzapine (Zyprexa *Odt*) 20 mg PO 2100 ON LICENSE OF [facility] Last Admin: 12/22/16 20:37 Dose: 20 mg - Discharge Plan Discharge Plan: Consider Longer Term Tx
[2016-12-23] MEDS: OLANzapine TAB*ODT* 10 MG TAB PO SCH (20:54)
[2016-12-24] MEDS: Vitamin THERAPEUTIC TAB PO SCH (10:00)
[2016-12-24] MEDS: Lithium Carbonate ER* 450 MG TAB.ER PO SCH ×3 (10:00→21:22)
[2016-12-24] MEDS: Haloperidol TAB* 5 MG PO SCH (10:00)
[2016-12-24] MEDS: Ferrous Sulfate TAB* 325 MG PO SCH ×2 (10:00→21:22)
[2016-12-24] MEDS: clonazePAM TAB(*) 1 MG PO PRN ×2 (13:15→21:24)
[2016-12-24] MEDS: hydrOXYzine HCL TAB* 25 MG PO PRN ×2 (13:15→21:24)
[2016-12-24] MEDS: Nicotine Inhaler* 10 MG AMP INH PRN ×2 (13:15→21:24)
[2016-12-24] MEDS: Al Hydrox/Mg Hydrox/Simet LIQ* 30 ML UDC PO PRN (19:51)
[2016-12-24] MEDS: OLANzapine TAB*ODT* 10 MG TAB PO SCH (21:24)
[2016-12-25] MEDS: Lithium Carbonate ER* 450 MG TAB.ER PO SCH ×3 (09:01→20:35)
[2016-12-25] MEDS: Vitamin THERAPEUTIC TAB PO SCH (09:01)
[2016-12-25] MEDS: Ferrous Sulfate TAB* 325 MG PO SCH ×2 (09:01→20:35)
[2016-12-25] MEDS: Haloperidol TAB* 5 MG PO SCH (09:01)
[2016-12-25] MEDS: Nicotine Inhaler* 10 MG AMP INH PRN ×2 (12:44→18:59)
[2016-12-25] MEDS: hydrOXYzine HCL TAB* 25 MG PO PRN ×2 (14:02→20:36)
[2016-12-25] MEDS: clonazePAM TAB(*) 1 MG PO PRN ×2 (14:02→22:05)
[2016-12-25] MEDS: Al Hydrox/Mg Hydrox/Simet LIQ* 30 ML UDC PO PRN (19:08)
[2016-12-25] MEDS: OLANzapine TAB*ODT* 10 MG TAB PO SCH (20:36)
[2016-12-26] MEDS: Haloperidol TAB* 5 MG PO SCH (10:07)
[2016-12-26] MEDS: Ferrous Sulfate TAB* 325 MG PO SCH ×2 (10:07→21:00)
[2016-12-26] MEDS: Vitamin THERAPEUTIC TAB PO SCH (10:07)
[2016-12-26] MEDS: Lithium Carbonate ER* 450 MG TAB.ER PO SCH ×3 (10:08→21:00)
[2016-12-26] MEDS: hydrOXYzine HCL TAB* 25 MG PO PRN ×2 (10:09→23:23)
[2016-12-26] MEDS: clonazePAM TAB(*) 1 MG PO PRN ×2 (10:11→20:59)
--- NOTE | 2016-12-26 11:42 | PN ---
MHU: Group Therapy Note - Service Type Service Type: 61442 Group Psychotherapy - Cognitive Behavioral Group Therapy ( CBT):Patient was attentive and participatory in CBT programming this morning, and remained in good behavioral control. Patient expressed positive insights regarding relevant treatment interventions and goals.
--- NOTE | 2016-12-26 14:07 | PN ---
Subjective - Subjective Service Type: 53855 Hosp care 15 min low complexity Subjective: Sunni reports she would like to discharge to [facility] if that is possible. She asked if we granted staff pass. We did with consensus on the treatment team. She denies any active psychotic symptoms or any dangerous intent or plan, with 'fine' mood and a ready smile. She agrees with discontinuation of Haldol. Objective - Appearance Appearance: Well Developed/Nourished Dysmorphic Features: No Hygiene: Normal Grooming: Well Kept - Behavior Psychomotor Activities: Normal Exhibits Abnormal Movement: No - Attitude and Relatedness Attitude and Relatedness: Cooperative Eye Contact: Good - Speech Quality: Unpressured Latencies: Normal Quantity: Appropriate - Mood Patient's Decription of Mood: "Fine" - Affect Observed Affect: Good Affect Consistent with: Euthymia - Thought Process Patient's Thought Process: Coherent, Goal Directed Thought Content: No Passive Wish, No Suicidal Planning, No Homicidal Ideation, No Paranoid Ideation - Sensorium Experiencing Hallucinations: No, Sensorium is Clear Type of Hallucinations: Visual: No, Auditory: No, Command: No - Level of Consciousness Level of Consciousness: Alert Orientation: Yes Intact, Yes Orientated to Time, Yes Orientated to Place, Yes Orientated to Person - Impulse Control Impulse Control: Intact - Insight and Judgement Insight and Judgement: Fair - Group Participation Particating in Group Activities: Yes Group Participation Comments: but declining most - Medication Management Medication Management Adherence: Yes Assessment - Assessment Merits Inpatient Hospitalization: For Stabilization, Consolidate Improvements, For Discharge Planning Inpatient DSM-IV Dx: Psychotic Disorder NOS. Mood disorder NOS. Schizoaffective Disorder by history. Amphetamine, cocaine and cannabinoid use disorders Clinical Impression: Ms. Ramirez is a 36-year-old, -[place]ux[place] woman who has returned to the emergency department seven days after being discharged from the [facility] to which she had been transferred after presenting here on the 12 of November with report of paranoid ideation and homicidal and suicidal ideation. She has evidently returned to a similar frame of mind shortly following discharge from the [facility]. She has required already on the unit chemical restraint for agitation with threatening behavior. We will be awaiting her to be able to take a more collaborative stance toward assessment and treatment to go forward with care here. Once that occurs, we will attempt to gather more history and mental status reports from her, and we will attempt to obtain releases to obtain discharge summaries and to communicate with those who have provided care for her in the community and perhaps also family members or familiars in the community. The presence of amphetamine and cocaine in her system could be the explanation for her paranoia and homicidal ideation, or this intoxication may be only exacerbating a chronic psychotic disorder. We will resume Zyprexa against psychosis, with Ativan and Seroquel as needed for anxiety and agitation. 11.25.17: Sunni remains paranoid and disorganized. She refuses to rise from bed to sit with me to report further history. She requests ibuprofen for pain. She has been taking her HCTZ and FeSO4, also Ativan prn, but has refused Seroquel prn. She did receive 5 mg haloperidol and 50 mg diphenhydramine IM yesterday, and an additional IM of 1 mg lorazepam to po doses taken. 4.3.17 Sunni is able to sit and talk now. She still demonstrates no insight into her agitated presentation and her history of paranoid psychosis with SI and HI. She asks for discharge, but she would not be very likely to maintain stability following discharge yet. We will be looking to gather more collateral, though she declined again with me to allow us to get the discharge summary from [facility]. 4..17 Sunni remains calmer, but still with limited insight into circumstances preceding hospitalization, versus guarded presentation. Med compliant. Not attending groups. Family meeting tomorrow. 4.5.17 Sunni agrees to what may be informative collateral from [facility]. Sister reports family history of schizophrenia, patient's history of no psychosis before recent weeks/months, past history of depressive illness, difficult adolescence with childbirth at 18 and of mother. Discussed past trials of lithium, but Sunni chose to continue on Zyprexa only, with understanding that it can be effective against acute zoey: refused increased dose. 4.6.17 Normotensive on all checks while refusing HCTZ: D/C HCTZ. Taking Zyprexa, with psychosis clearing. Still sleeping most of the day, or at least lying down with eyes closed in room or in milieu. Collateral from [facility] gives no clarifying history: await reports from [facility] to help with question of whether recent psychosis may have been due to amphetamine abuse or is chronic condition. Sunni remains paranoid/guarded and does not help clarify this with report of her history, unsure if this is due to incapacity or choice. If trend of clearing psychosis with remitted dangerous intent/plan holds and improves, may be ready for stable discharge early next week. Refused increased Zyprexa dose or initiation of lithium, which in yesterday's meeting she said she had taken in the past, raising suspicion for history of bipolar illness. 4.17 Sunni seeks staff pass. She will be granted 30 minute checks if she attends groups responsibly. She remains on track to the [facility] for now. 12.21. Sunni has asked today if she can changer her mind about going to the [facility] for continued care. I explained that given the severity of her symptoms leading to and well into this admission, and given the lack of a stable disposition such that the likelihood of relapse due to inadequate supports, I feel she would do best to transfer to the [facility] as planned. From there, once she is further stabilized in remission of psychosis, there would likely be increased options for placement into a step-down domiciling/psychiatric monitoring disposition boding much better for [facility] stability than discharge from here directly to the community without adequate supports. 4.17 sunni complains today of awakening in the night. She is already taking multiple sedating medications, and i have explained to her I will defer for now adding another one. She remains on track to long-term care. 5..17 Sunni was granted staff pass today. She has no active psychiatric complaints besides awakening in the night. I told her I would teach her some Dominick Chi exercises I had learned that might be a more natural way to promote sleep. I do not want to add more sedating medications to her regimen. I also addressed with her the need to take steps to take off some of the weight she has gained with appetite stimulation from olanzapine, confinement with lack of exercise, and likely eating for comfort in this context. She would be at high risk of relapse to psychosis if discharged now to the community, where she would not have adequate domiciling. 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 Plan - Plan Treatment Plan: Name: SUNNI RAMIREZ Birthdate: 1980 [id number] Continue current meds except Haldol. Monitor MS and safety. Encourage groups and milieu. Plan toward transfer to [facility]. Medications: Current Medications Acetaminophen (Tylenol Tab*) 650 mg PO Q4H PRN PRN Reason: PAIN or TEMP > 101 F Last Admin: 12/21/16 17:46 Dose: 650 mg Al Hydrox/Mg Hydrox/Simethicone (Maalox Plus*) 30 ml PO Q4H PRN PRN Reason: INDIGESTION Last Admin: 12/25/16 19:08 Dose: 30 ml Benzocaine (Baby Orajel 7.5%*) 1 applic TOPICAL QID PRN PRN Reason: oral pain Last Admin: 12/22/16 18:14 Dose: 1 apply Cetirizine HCl (Zyrtec*) 5 mg PO DAILY PRN PRN Reason: Allergy Symptoms Last Admin: 12/07/16 20:53 Dose: 5 mg Clonazepam (Klonopin Tab(*)) 1 mg PO Q8H PRN PRN Reason: ANXIETY Device (Nicotine Mouth Piece*) 1 each INH .CARTRIDGE [facility] Last Admin: 12/14/16 13:10 Dose: 1 each Ferrous Sulfate (Ferrous Sulfate Tab*) 325 mg PO BID [facility] Last Admin: 12/26/16 10:07 Dose: 325 mg Haloperidol (Haldol Tab*) 5 mg PO DAILY [facility] Last Admin: 12/26/16 10:07 Dose: 5 mg Hydroxyzine HCl (Atarax Tab*) 25 mg PO Q6H PRN PRN Reason: ANXIETY Last Admin: 12/26/16 10:09 Dose: 25 mg Ibuprofen (Motrin Tab*) 800 mg PO Q8H PRN PRN Reason: PAIN Last Admin: 12/23/16 14:08 Dose: 800 mg [employer] Carbonate ([employer] Carbonate Er Tab*) 450 mg PO TID [facility] Last Admin: 12/26/16 10:08 Dose: 450 mg Multivitamins (Theragran Tab*) 1 tab PO DAILY [facility] Last Admin: 12/26/16 10:07 Dose: 1 tab Nicotine (Nicotine Inhaler*) 10 mg INH Q2H PRN PRN Reason: CRAVING Last Admin: 12/25/16 18:59 Dose: 10 mg Nicotine Polacrilex (Nicotine Gum*) 2 mg PO Q2H PRN PRN Reason: CRAVING Last Admin: 11/25/16 14:19 Dose: 2 mg Olanzapine (Zyprexa * Tab Odt) 5 mg PO Q6H PRN PRN Reason: AGITATION Last Admin: 12/16/16 18:03 Dose: 5 mg Olanzapine (Zyprexa *Odt*) 20 mg PO 2100 [facility] Last Admin: 12/25/16 20:36 Dose: 20 mg - Discharge Plan Discharge Plan: Consider Longer Term Tx
[2016-12-26] MEDS: Ibuprofen TAB* 800 MG PO PRN (16:56)
[2016-12-26] MEDS: Nicotine Inhaler* 10 MG AMP INH PRN ×2 (19:07→23:23)
[2016-12-26] MEDS: OLANzapine TAB*ODT* 10 MG TAB PO SCH (20:59)
[2016-12-26] MEDS: Acetaminophen TAB* 325 MG PO PRN (23:23)
[2016-12-27] MEDS: Lithium Carbonate ER* 450 MG TAB.ER PO SCH ×3 (09:39→21:36)
[2016-12-27] MEDS: Vitamin THERAPEUTIC TAB PO SCH (09:39)
[2016-12-27] MEDS: Ferrous Sulfate TAB* 325 MG PO SCH ×2 (09:39→21:36)
[2016-12-27] MEDS: Acetaminophen TAB* 325 MG PO PRN (14:31)
[2016-12-27] MEDS: Nicotine Inhaler* 10 MG AMP INH PRN ×2 (14:32→20:52)
[2016-12-27] MEDS: Ibuprofen TAB* 800 MG PO PRN (16:57)
[2016-12-27] MEDS: clonazePAM TAB(*) 1 MG PO PRN (20:10)
[2016-12-27] MEDS: hydrOXYzine HCL TAB* 25 MG PO PRN (20:11)
[2016-12-27] MEDS: OLANzapine TAB*ODT* 10 MG TAB PO SCH (21:36)
[2016-12-27] MEDS: OLANzapine TAB*ODT* 5 MG PO PRN (21:58)
[2016-12-28] MEDS: Lithium Carbonate ER* 450 MG TAB.ER PO SCH ×3 (09:25→21:24)
[2016-12-28] MEDS: Ferrous Sulfate TAB* 325 MG PO SCH ×2 (09:25→21:24)
[2016-12-28] MEDS: Vitamin THERAPEUTIC TAB PO SCH (09:25)
--- NOTE | 2016-12-28 11:18 | PN ---
Subjective - Subjective Service Type: 94411 Hosp care 15 min low complexity Subjective: Sunni is upset today at being told she can only use the computer once daily. She reports this has affected her mood. She says she feels singled out. Through the course of our interview, chayito was pleasant, smiling, laughing and calm by the end, agreeable to my report to her that staff wants her to be attending all groups before computer privileges are expanded. We talked about a nutrition consult to address weight gain on Zyprexa and lithium. She is hopeful for placement through [facility] into a supervised/assisted living situation for her mental health. She says she understands that if a bed at the [facility] opens before this comes through, she will go to the [facility], from which she will have similar options for community placement. She has no physical complaints. Objective - Appearance Appearance: Obese Dysmorphic Features: No Hygiene: Normal Grooming: Fairly Well Kept - Behavior Psychomotor Activities: Normal Exhibits Abnormal Movement: No - Attitude and Relatedness Attitude and Relatedness: Cooperative Eye Contact: Good - Speech Quality: Unpressured Latencies: Normal Quantity: Appropriate - Mood Patient's Decription of Mood: "Fine" - - "until people tested me with this 'you' re only going to use the computer once a day' stuff" - Affect Observed Affect: Fair Affect Consistent with: Euthymia - Thought Process Patient's Thought Process: Coherent, Goal Directed Thought Content: No Passive Wish, No Suicidal Planning, No Homicidal Ideation, No Paranoid Ideation - Sensorium Experiencing Hallucinations: No, Sensorium is Clear Type of Hallucinations: Visual: No, Auditory: No, Command: No - Level of Consciousness Level of Consciousness: Alert Orientation: Yes Intact, Yes Orientated to Time, Yes Orientated to Place, Yes Orientated to Person - Impulse Control Impulse Control: Intact - Insight and Judgement Insight and Judgement: Fair - Group Participation Particating in Group Activities: Yes Group Participation Comments: but few: enjoying staff pass - Medication Management Medication Management Adherence: Yes Assessment - Assessment Merits Inpatient Hospitalization: Consolidate Improvements, For Discharge Planning Inpatient DSM-IV Dx: Psychotic Disorder NOS. Mood disorder NOS. Schizoaffective Disorder by history. Amphetamine, cocaine and cannabinoid use disorders Clinical Impression: Ms. Ramirez is a 36-year-old, -Japanese woman who has returned to the emergency department seven days after being discharged from the [facility] to which she had been transferred after presenting here on the 12 of November with report of paranoid ideation and homicidal and suicidal ideation. She has evidently returned to a similar frame of mind shortly following discharge from the [facility]. She has required already on the unit chemical restraint for agitation with threatening behavior. We will be awaiting her to be able to take a more collaborative stance toward assessment and treatment to go forward with care here. Once that occurs, we will attempt to gather more history and mental status reports from her, and we will attempt to obtain releases to obtain discharge summaries and to communicate with those who have provided care for her in the community and perhaps also family members or familiars in the community. The presence of amphetamine and cocaine in her system could be the explanation for her paranoia and homicidal ideation, or this intoxication may be only exacerbating a chronic psychotic disorder. We will resume Zyprexa against psychosis, with Ativan and Seroquel as needed for anxiety and agitation. 3.31.17: Sunni remains paranoid and disorganized. She refuses to rise from bed to sit with me to report further history. She requests ibuprofen for pain. She has been taking her HCTZ and FeSO4, also Ativan prn, but has refused Seroquel prn. She did receive 5 mg haloperidol and 50 mg diphenhydramine IM yesterday, and an additional IM of 1 mg lorazepam to po doses taken. 4.3.17 Sunni is able to sit and talk now. She still demonstrates no insight into her agitated presentation and her history of paranoid psychosis with SI and HI. She asks for discharge, but she would not be very likely to maintain stability following discharge yet. We will be looking to gather more collateral, though she declined again with me to allow us to get the discharge summary from [facility]. 4.4.17 Sunni remains calmer, but still with limited insight into circumstances preceding hospitalization, versus guarded presentation. Med compliant. Not attending groups. Family meeting tomorrow. 4.5.17 Sunni agrees to what may be informative collateral from [facility]. Sister reports family history of schizophrenia, patient's history of no psychosis before recent weeks/months, past history of depressive illness, difficult adolescence with childbirth at 18 and of mother. Discussed past trials of lithium, but Sunni chose to continue on Zyprexa only, with understanding that it can be effective against acute zoey: refused increased dose. 4.6.17 Normotensive on all checks while refusing HCTZ: D/C HCTZ. Taking Zyprexa, with psychosis clearing. Still sleeping most of the day, or at least lying down with eyes closed in room or in milieu. Collateral from [facility] gives no clarifying history: await reports from [facility] to help with question of whether recent psychosis may have been due to amphetamine abuse or is chronic condition. Sunni remains paranoid/guarded and does not help clarify this with report of her history, unsure if this is due to incapacity or choice. If trend of clearing psychosis with remitted dangerous intent/plan holds and improves, may be ready for stable discharge early next week. Refused increased Zyprexa dose or initiation of lithium, which in yesterday's meeting she said she had taken in the past, raising suspicion for history of bipolar illness. 4.17 Sunni seeks staff pass. She will be granted 30 minute checks if she attends groups responsibly. She remains on track to the [facility] for now. 12.21.17 Sunni has asked today if she can changer her mind about going to the [facility] for continued care. I explained that given the severity of her symptoms leading to and well into this admission, and given the lack of a stable disposition such that the likelihood of relapse due to inadequate supports, I feel she would do best to transfer to the [facility] as planned. From there, once she is further stabilized in remission of psychosis, there would likely be increased options for placement into a step-down domiciling/psychiatric monitoring disposition boding much better for residential stability than discharge from here directly to the community without adequate supports. 428.17 sunni complains today of awakening in the night. She is already taking multiple sedating medications, and i have explained to her I will defer for now adding another one. She remains on track to long-term care. 5..17 Sunni was granted staff pass today. She has no active psychiatric complaints besides awakening in the night. I told her I would teach her some Dominick Chi exercises I had learned that might be a more natural way to promote sleep. I do not want to add more sedating medications to her regimen. I also addressed with her the need to take steps to take off some of the weight she has gained with appetite stimulation from olanzapine, confinement with lack of exercise, and likely eating for comfort in this context. She would be at high risk of relapse to psychosis if discharged now to the community, where she would not have adequate domiciling. 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 5.3.17 Sunni agrees to attend groups in order to expand computer privileges. She is gaining weight and needs nutritional guidance/assistance. She is more pleasant and collaborative. She agrees with some reluctance to the wisdom of discharge to a more supportive setting than a hotel room, as she has suggested, for the sake of lowered likelihood of relapse to substance abuse and psychosis. Plan - Plan Treatment Plan: Name: SUNNI RAMIREZ Birthdate: 1980 [id number] Continue current meds. Nutrition c/s. Monitor MS and safety. Encourage groups and milieu. Plan toward transfer to [facility] unless supported housing available first. Medications: Current Medications Acetaminophen (Tylenol Tab*) 650 mg PO Q4H PRN PRN Reason: PAIN or TEMP > 101 F Last Admin: 12/27/16 14:31 Dose: 650 mg Al Hydrox/Mg Hydrox/Simethicone (Maalox Plus*) 30 ml PO Q4H PRN PRN Reason: INDIGESTION Last Admin: 12/25/16 19:08 Dose: 30 ml Benzocaine (Baby Orajel 7.5%*) 1 applic TOPICAL QID PRN PRN Reason: oral pain Last Admin: 12/22/16 18:14 Dose: 1 apply Cetirizine HCl (Zyrtec*) 5 mg PO DAILY PRN PRN Reason: Allergy Symptoms Last Admin: 12/07/16 20:53 Dose: 5 mg Clonazepam (Klonopin Tab(*)) 1 mg PO Q8H PRN PRN Reason: ANXIETY Last Admin: 12/27/16 20:10 Dose: 1 mg Device (Nicotine Mouth Piece*) 1 each INH .CARTRIDGE [facility] Last Admin: 12/14/16 13:10 Dose: 1 each Ferrous Sulfate (Ferrous Sulfate Tab*) 325 mg PO BID [facility] Last Admin: 12/28/16 09:25 Dose: 325 mg Hydroxyzine HCl (Atarax Tab*) 25 mg PO Q6H PRN PRN Reason: ANXIETY Last Admin: 12/27/16 20:11 Dose: 25 mg Ibuprofen (Motrin Tab*) 800 mg PO Q8H PRN PRN Reason: PAIN Last Admin: 12/27/16 16:57 Dose: 800 mg [place] Carbonate ([place] Carbonate Er Tab*) 450 mg PO TID [facility] Last Admin: 12/28/16 09:25 Dose: 450 mg Multivitamins (Theragran Tab*) 1 tab PO DAILY [facility] Last Admin: 12/28/16 09:25 Dose: 1 tab Nicotine (Nicotine Inhaler*) 10 mg INH Q2H PRN PRN Reason: CRAVING Last Admin: 12/27/16 20:52 Dose: 10 mg Nicotine Polacrilex (Nicotine Gum*) 2 mg PO Q2H PRN PRN Reason: CRAVING Last Admin: 11/25/16 14:19 Dose: 2 mg Olanzapine (Zyprexa * Tab Odt) 5 mg PO Q6H PRN PRN Reason: AGITATION Last Admin: 12/27/16 21:58 Dose: 5 mg Olanzapine (Zyprexa *Odt*) 20 mg PO 2100 [facility] Last Admin: 12/27/16 21:36 Dose: 20 mg - Discharge Plan Discharge Plan: Consider Longer Term Tx
--- NOTE | 2016-12-28 11:42 | PN ---
MHU: Group Therapy Note - Service Type Service Type: [id number] Group Psychotherapy - Cognitive Behavioral Group Therapy ( CBT):Patient presented in CBT programming as disorganized and disruptive in discussion and needed repeated redirection to attend to presented materials.
[2016-12-28] MEDS: Ibuprofen TAB* 800 MG PO PRN ×2 (12:23→21:59)
[2016-12-28] MEDS: Nicotine Inhaler* 10 MG AMP INH PRN ×4 (12:24→23:52)
[2016-12-28] MEDS: clonazePAM TAB(*) 1 MG PO PRN ×2 (16:18→23:52)
[2016-12-28] MEDS: hydrOXYzine HCL TAB* 25 MG PO PRN ×2 (18:09→23:52)
[2016-12-28] MEDS: OLANzapine TAB*ODT* 5 MG PO PRN (18:09)
[2016-12-28] MEDS: Acetaminophen TAB* 325 MG PO PRN (20:18)
[2016-12-28] MEDS: OLANzapine TAB*ODT* 10 MG TAB PO SCH (21:24)
[2016-12-28] MEDS: Al Hydrox/Mg Hydrox/Simet LIQ* 30 ML UDC PO PRN (22:56)
[2016-12-29] MEDS: Lithium Carbonate ER* 450 MG TAB.ER PO SCH ×3 (10:00→22:17)
[2016-12-29] MEDS: Vitamin THERAPEUTIC TAB PO SCH (10:00)
[2016-12-29] MEDS: Ferrous Sulfate TAB* 325 MG PO SCH ×2 (10:01→22:17)
[2016-12-29] MEDS: hydrOXYzine HCL TAB* 25 MG PO PRN ×2 (11:43→18:59)
[2016-12-29] MEDS: clonazePAM TAB(*) 1 MG PO PRN ×2 (11:43→20:18)
[2016-12-29] MEDS: Nicotine Inhaler* 10 MG AMP INH PRN ×5 (11:45→22:20)
[2016-12-29] MEDS ORDERED: Haloperidol TAB* 2 MG PO ONE (13:11)
--- NOTE | 2016-12-29 13:29 | PN ---
M[facility]: Group Therapy Note - Service Type Service Type: 70213 Group Psychotherapy - Cognitive Behavioral Group Therapy ( CBT):Patient was attentive and participatory in CBT programming this morning, and remained in good behavioral control. Patient expressed positive insights regarding relevant treatment interventions and goals.
[2016-12-29] MEDS: Ibuprofen TAB* 800 MG PO PRN (15:46)
[2016-12-29] MEDS ORDERED: LORazepam TAB(*) 1 MG PO ONE (17:55)
[2016-12-29] MEDS: Haloperidol TAB* 2 MG PO PRN (18:05)
[2016-12-29] MEDS ORDERED: LORazepam TAB(*) 1 MG ONE (18:05)
[2016-12-29] MEDS ORDERED: Haloperidol TAB* 2 MG ONE (18:06)
[2016-12-29] MEDS: OLANzapine TAB*ODT* 5 MG PO PRN (18:59)
[2016-12-29] MEDS: Mouth Piece, Nicotine* 1 EACH CARTRIDGE INH SCH (20:09)
[2016-12-29] MEDS: Acetaminophen TAB* 325 MG PO PRN (20:18)
[2016-12-29] MEDS: OLANzapine TAB*ODT* 10 MG TAB PO SCH (22:17)
[2016-12-30] MEDS: Haloperidol TAB* 2 MG PO PRN ×3 (00:11→19:05)
[2016-12-30] MEDS: Nicotine Inhaler* 10 MG AMP INH PRN ×2 (00:12→19:05)
[2016-12-30] MEDS: Lithium Carbonate ER* 450 MG TAB.ER PO SCH ×3 (09:11→20:10)
[2016-12-30] MEDS: Ferrous Sulfate TAB* 325 MG PO SCH ×2 (09:11→20:10)
[2016-12-30] MEDS: Vitamin THERAPEUTIC TAB PO SCH (09:11)
[2016-12-30 10:46] LABS: Hematocrit 34 % (35-47); Hemoglobin 10.9 g/dl (12.0-16.0); Mean Corpuscular HGB Conc 32 g/dl (31-36); Mean Corpuscular Hemoglobin 26 pg (27-31); Mean Corpuscular Volume 81 fL (80-97); Mean Platelet Volume 7 um3 (7.4-10.4); Red Blood Count 4.18 10^6/ul (4.0-5.4); Red Cell Distribution Width 30 % (10.5-15); White Blood Count 6.1 10^3/ul (3.5-10.8)
[2016-12-30 10:47] LABS: Add Diff/Slide Review? Slide Review Added; Comments Flag Yes
[2016-12-30 11:13] LABS: Albumin 3.6 g/dL (3.2-5.2); BUN/Creatinine Ratio 22.4 (8-20); Calcium 9.1 mg/dL (8.6-10.3); EGFR Non-African American 87.1 (>60); Globulin 2.9 g/dL (2-4); Potassium 3.8 mmol/L (3.5-5.0); Total Bilirubin 0.3 mg/dL (0.2-1.0); Total Protein 6.5 g/dL (6.4-8.9)
--- NOTE | 2016-12-30 11:16 | PN ---
Subjective - Subjective Service Type: 98906 Hosp care 15 min low complexity Subjective: Radha playfully expressed displeasure with me: you're the reason I'm going to the [facility]! She heard my concerns and seemed to accept them: "what??? I can't smoke marijuana when I get out of here!!!??" It appears she was expecting to be able to on her release from the unit. She said she would take medications in the community if people says she has to. I framed [facility] as a place to consolidate gains and maximize chance of success. Objective - Appearance Appearance: Obese Hygiene: Normal Grooming: Fairly Well Kept - Behavior Psychomotor Activities: Normal - Attitude and Relatedness Attitude and Relatedness: Minimally Cooperative Eye Contact: Good - Speech Quality: Unpressured Latencies: Short Quantity: Appropriate - Mood Patient's Decription of Mood: "Great" - Affect Observed Affect: Expansive Affect Consistent with: Euthymia - inappropriately bright - Thought Process Patient's Thought Process: Coherent, Impoverished Thought Content: No Passive Wish, No Suicidal Planning, No Homicidal Ideation, No Paranoid Ideation - Sensorium Experiencing Hallucinations: No, Sensorium is Clear - Level of Consciousness Level of Consciousness: Alert - Impulse Control Impulse Control: Intact - Insight and Judgement Insight and Judgement: Poor Assessment - Assessment Merits Inpatient Hospitalization: To Initiate Treatment, For Ongoing Evaluation , Consolidate Improvements, For Discharge Planning, Pending Safe DC Plan Inpatient DSM-IV Dx: Psychotic Disorder NOS. Mood disorder NOS. Schizoaffective Disorder by history. Amphetamine, cocaine and cannabinoid use disorders Clinical Impression: 36 y/o female with substance use disorders, recent psychiatric hospitalization, prior mood condition and Stinnett treatment, family history of schizophrenia, and reported diagnosis of Schizoaffective disorder. She was admitted about a week after psychiatric discharge. She was brought to the ED by police after threatening homicide at [facility], and was evaluated with impairing psychosis. She was violent in the ED requiring restraints and emergency medication. Additionally she had some level of suicidal ideation preceding her other recent hospitalization. Her UDS was positive for Amphetamines, cannabis and Cocaine. Stabilized behaviorally here. Improved, with reduced manic features. Continues with poor insight into need for treatment and judgment on things like avoiding cannabis. Appears to be at elevated risk for nonaherence in the community. Would benefit from longer consolidation at the state level, before contending with adjustment to a new community, supported living, treatment need, routine. Medication management is coverage for Schizoaffective disorder: Zyprexa and [place]ett (level 0.79 5/5). Based on violence and patient's peristent impairment, referral made to [facility] - bed has been delayed but is still indicated. Plan - Plan Treatment Plan: Name: RADHA MOE Birthdate: 1980 [id number] Continued Medication Management: Start Medication Medications: Current Medications Acetaminophen (Tylenol Tab*) 650 mg PO Q4H PRN PRN Reason: PAIN or TEMP > 101 F Last Admin: 12/29/16 20:18 Dose: 650 mg Al Hydrox/Mg Hydrox/Simethicone (Maalox Plus*) 30 ml PO Q4H PRN PRN Reason: INDIGESTION Last Admin: 12/28/16 22:56 Dose: 30 ml Benzocaine (Baby Orajel 7.5%*) 1 applic TOPICAL QID PRN PRN Reason: oral pain Last Admin: 12/22/16 18:14 Dose: 1 apply Cetirizine HCl (Zyrtec*) 5 mg PO DAILY PRN PRN Reason: Allergy Symptoms Last Admin: 12/07/16 20:53 Dose: 5 mg Clonazepam (Klonopin Tab(*)) 1 mg PO Q8H PRN PRN Reason: ANXIETY Last Admin: 12/29/16 20:18 Dose: 1 mg Device (Nicotine Mouth Piece*) 1 each INH .CARTRIDGE [facility] Last Admin: 12/29/16 20:09 Dose: 1 each Ferrous Sulfate (Ferrous Sulfate Tab*) 325 mg PO BID [facility] Last Admin: 12/30/16 09:11 Dose: 325 mg Haloperidol (Haldol Tab*) 2 mg PO Q6H PRN PRN Reason: AGITATION Last Admin: 12/30/16 10:01 Dose: 2 mg Hydroxyzine HCl (Atarax Tab*) 25 mg PO Q6H PRN PRN Reason: ANXIETY Last Admin: 12/29/16 18:59 Dose: 25 mg Ibuprofen (Motrin Tab*) 800 mg PO Q8H PRN PRN Reason: PAIN Last Admin: 12/29/16 15:46 Dose: 800 mg Stinnett Carbonate (Stinnett Carbonate Er Tab*) 450 mg PO TID [facility] Last Admin: 12/30/16 09:11 Dose: 450 mg Multivitamins (Theragran Tab*) 1 tab PO DAILY [facility] Last Admin: 12/30/16 09:11 Dose: 1 tab Nicotine (Nicotine Inhaler*) 10 mg INH Q2H PRN PRN Reason: CRAVING Last Admin: 12/30/16 00:12 Dose: 10 mg Nicotine Polacrilex (Nicotine Gum*) 2 mg PO Q2H PRN PRN Reason: CRAVING Last Admin: 11/25/16 14:19 Dose: 2 mg Olanzapine (Zyprexa * Tab Odt) 5 mg PO Q6H PRN PRN Reason: AGITATION Last Admin: 12/29/16 18:59 Dose: 5 mg Olanzapine (Zyprexa *Odt*) 20 mg PO 2100 [facility] Last Admin: 12/29/16 22:17 Dose: 20 mg - Discharge Plan Discharge Plan: Consider Longer Term Tx
[2016-12-30 11:37] LABS: Lithium 0.79 mmol/L (0.6-1.2)
[2016-12-30] MEDS: Ibuprofen TAB* 800 MG PO PRN ×2 (12:53→21:18)
[2016-12-30] MEDS: clonazePAM TAB(*) 1 MG PO PRN ×2 (12:53→20:10)
[2016-12-30] MEDS: hydrOXYzine HCL TAB* 25 MG PO PRN (19:05)
[2016-12-30] MEDS: OLANzapine TAB*ODT* 10 MG TAB PO SCH (20:10)
[2016-12-31] MEDS: clonazePAM TAB(*) 1 MG PO PRN ×3 (03:54→23:22)
[2016-12-31] MEDS: Lithium Carbonate ER* 450 MG TAB.ER PO SCH ×3 (09:39→22:07)
[2016-12-31] MEDS: Ferrous Sulfate TAB* 325 MG PO SCH ×2 (09:40→22:07)
[2016-12-31] MEDS: Vitamin THERAPEUTIC TAB PO SCH (09:40)
[2016-12-31] MEDS: Haloperidol TAB* 2 MG PO PRN ×3 (09:41→21:07)
[2016-12-31 09:47] LABS: TSH (Thyroid Stimulating Horm) 1.31 mcIU/mL (0.34-5.60)
[2016-12-31] MEDS: Nicotine Inhaler* 10 MG AMP INH PRN ×5 (09:56→23:22)
[2016-12-31] MEDS: hydrOXYzine HCL TAB* 25 MG PO PRN ×2 (15:36→23:22)
[2016-12-31] MEDS: OLANzapine TAB*ODT* 5 MG PO PRN (18:50)
[2016-12-31] MEDS: OLANzapine TAB*ODT* 10 MG TAB PO SCH (22:08)
[2017-01-01 07:49] VITALS: BP 116/50
[2017-01-01] MEDS: Ferrous Sulfate TAB* 325 MG PO SCH ×2 (10:16→21:31)
[2017-01-01] MEDS: Lithium Carbonate ER* 450 MG TAB.ER PO SCH ×3 (10:16→21:31)
[2017-01-01] MEDS: Vitamin THERAPEUTIC TAB PO SCH (10:16)
[2017-01-01] MEDS: Ibuprofen TAB* 800 MG PO PRN ×2 (11:29→23:42)
[2017-01-01] MEDS: Haloperidol TAB* 2 MG PO PRN ×3 (11:29→23:41)
[2017-01-01] MEDS: Nicotine Inhaler* 10 MG AMP INH PRN ×5 (11:30→23:43)
[2017-01-01] MEDS: clonazePAM TAB(*) 1 MG PO PRN (17:32)
[2017-01-01] MEDS: hydrOXYzine HCL TAB* 25 MG PO PRN (17:52)
[2017-01-01] MEDS: OLANzapine TAB*ODT* 5 MG PO PRN (18:16)
[2017-01-01] MEDS: OLANzapine TAB*ODT* 10 MG TAB PO SCH (21:31)
[2017-01-02] MEDS: Vitamin THERAPEUTIC TAB PO SCH (09:08)
[2017-01-02] MEDS: Ferrous Sulfate TAB* 325 MG PO SCH (09:09)
[2017-01-02] MEDS: Lithium Carbonate ER* 450 MG TAB.ER PO SCH (09:31)
[2017-01-02] MEDS ORDERED: clonazePAM TAB(*) 1 MG PO PRN (09:54)
[2017-01-02] MEDS: hydrOXYzine HCL TAB* 25 MG PO PRN (11:25)
[2017-01-02] MEDS: Haloperidol TAB* 2 MG PO PRN (11:25)
--- NOTE | 2017-01-02 11:57 | DS ---
Subjective - Subjective Service Types: 01209 Hosp [place] Day Mgmt simple under 30 min Discharge Date: 01/02/17 Subjective: Sunni was still in bed and sleeping at 10:45 am. She reported feeling angry about having to go to the [facility] instead of to the [facility] that had accepted her. She acknowledged my explanation of why this decision was made and my hope that a few more weeks would make for a more stable discharge if it allowed her to form a commitment to sobriety and aftercare through developing better insight into her illness. She did not say that she agreed. She had no physical complaints, and denied any psychotic symptoms, mood symptoms beyond being upset at being transferred, and denied any dangerous intent or plan. Objective - Appearance Appearance: Obese Dysmorphic Features: No Hygiene: Normal Grooming: Fairly Well Kept - Behavior Psychomotor Activities: Abnormal-Decreased - in bed till 10:45 am Exhibits Abnormal Movement: No - Attitude and Relatedness Attitude and Relatedness: Minimally Cooperative Eye Contact: Poor - Speech Quality: Unpressured Latencies: Long Quantity: Terse - Mood Patient's Decription of Mood: "Angry" - Affect Observed Affect: Tense Affect Consistent with: Dysphoria - Thought Process Patient's Thought Process: Coherent, Goal Directed Thought Content: No Passive Wish, No Suicidal Planning, No Homicidal Ideation, No Paranoid Ideation - Sensorium Experiencing Hallucinations: No, Sensorium is Clear Type of Hallucinations: Visual: No, Auditory: No, Command: No - Level of Consciousness Level of Consciousness: Lethargic - interviewed at awakening Orientation: Yes Intact, Yes Orientated to Time, Yes Orientated to Place, Yes Orientated to Person - Impulse Control Impulse Control: Intact - Insight and Judgement Insight and Judgement: Poor - Group Participation Particating in Group Activities: No - Medication Management Medication Management Adherence: Yes Treatment Course & Assessment Clinical Course & Impression: Ms. Ramirez is a 36-year-old, -L[place] woman who returned to the emergency department seven days after being discharged from the [facility] to which she had been transferred after presenting to the [facility] ED on the 12 of November with report of paranoid ideation and homicidal and suicidal ideation. She required in her first 24 hours on the unit chemical restraint for agitation with threatening behavior. She had amphetamine and cocaine in her system which could have been contributing to her paranoia and homicidal ideation. We initially resumed Zyprexa against psychosis, with Ativan and Seroquel as needed for anxiety and agitation. 11.25.17: Sunni remains paranoid and disorganized. She refuses to rise from bed to sit with me to report further history. She requests ibuprofen for pain. She has been taking her HCTZ and FeSO4, also Ativan prn, but has refused Seroquel prn. She did receive 5 mg haloperidol and 50 mg diphenhydramine IM yesterday, and an additional IM of 1 mg lorazepam to po doses taken. 4.3.17 Sunni is able to sit and talk now. She still demonstrates no insight into her agitated presentation and her history of paranoid psychosis with SI and HI. She asks for discharge, but she would not be very likely to maintain stability following discharge yet. We will be looking to gather more collateral, though she declined again with me to allow us to get the discharge summary from [facility]. 4.17 Sunni remains calmer, but still with limited insight into circumstances preceding hospitalization, versus guarded presentation. Med compliant. Not attending groups. Family meeting tomorrow. 4.5.17 Sunni agrees to what may be informative collateral from [facility]. Sister reports family history of schizophrenia, patient's history of no psychosis before recent weeks/months, past history of depressive illness, difficult adolescence with childbirth at 18 and of mother. Discussed past trials of lithium, but Sunni chose to continue on Zyprexa only, with understanding that it can be effective against acute zoey: refused increased dose. 46.17 Normotensive on all checks while refusing HCTZ for the past week: D/C HCTZ. Taking Zyprexa, with psychosis clearing. Still sleeping most of the day, or at least lying down with eyes closed in room or in milieu. Collateral from [facility] gives no clarifying history: await reports from [facility] to help with question of whether recent psychosis may have been due to amphetamine abuse or is chronic condition. Sunni remains paranoid/guarded and does not help clarify this with report of her history, unsure if this is due to incapacity or choice. If trend of clearing psychosis with remitted dangerous intent/plan holds and improves, may be ready for stable discharge early next week. Refused increased Zyprexa dose or initiation of lithium, which in yesterday's meeting she said she had taken in the past, raising suspicion for history of bipolar illness. 4.17 Sunni seeks staff pass. She will be granted 30 minute checks if she attends groups responsibly. She remains on track to the [facility] for now. 4..17 Sunni has asked today if she can changer her mind about going to the [facility] for continued care. I explained that given the severity of her symptoms leading to and well into this admission, and given the lack of a stable disposition such that the likelihood of relapse due to inadequate supports, I feel she would do best to transfer to the [facility] as planned. 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 4.28.17 sunni complains today of awakening in the night. She is already taking multiple sedating medications, and i have explained to her I will defer for now adding another one. She remains on track to long-term care. 5.1.17 Sunni was granted staff pass today. She has no active psychiatric complaints besides awakening in the night. I told her I would teach her some Dominick Chi exercises I had learned that might be a more natural way to promote sleep. I do not want to add more sedating medications to her regimen. I also addressed with her the need to take steps to take off some of the weight she has gained with appetite stimulation from olanzapine, confinement with lack of exercise, and likely eating for comfort in this context. She would be at high risk of relapse to psychosis if discharged now to the community, where she would not have adequate domiciling. She still merits transfer to usp care at the [facility] where other options for domiciling with more supports to prevent relapse will be available at discharge. 5.3.17 Sunni agrees to attend groups in order to expand computer privileges. She is gaining weight and needs nutritional guidance/assistance. She is more pleasant and collaborative. She agrees with some reluctance to the wisdom of discharge to a more supportive setting than a hotel room, as she has suggested, for the sake of lowered likelihood of relapse to substance abuse and psychosis. 5.8.17 Sunni was upset and angry about not being able to go to the [email or web address] program that had accepted her with anticipated intake in about 1 week on the same day a bed became available to her at [facility]. After discussing her case with Dr Ferreira, I decided to continue with transfer to [facility] because she has given some indications that she intended to resume abuse of illicit substances after discharge, which would jeopardize maintaining the gains she has made over this lengthy treatment in the acute setting, and because she has yet to express any clear insight into her need for continued psychiatric care in the outpatient setting to prevent risks of harm were she to relapse into her chronic psychotic illness. She has not been hypertensive at any time during this hospitalization, but she has been tachycardic, hovering in the 90s for the most part, with a few readings above 100, highest on admission and again shortly after being upset at my decision to continue with transfer to the [facility] hospital. Merits Inpatient Hospitalization: Yes Inpatient DSM-IV Dx: Psychotic Disorder NOS. Mood disorder NOS. Schizoaffective Disorder by history. Amphetamine, cocaine and cannabinoid use disorders - [place] II MR and Personality Disorder: Deferred - [place] III Medical Illness: tachycardic but not hypertensive. obese - [place] IV Stressors: limited financial and social supports. Family: supportive sister in the area who would not offer domiciling at this time Primary Support Group: sister - [place] V [id number]: 40 Estimate of Highest-Past Year: 60 Discharge Planning - Discharge Planning Discharge Plan: Inpatient Hospitalization Recommendations for Continuing Care: Medication Management, Psychotherapy, Substance Abuse Counseling, Routine Metabolic Monitoring, Therapeutic Drug Levels Medications: Current Medications Acetaminophen (Tylenol Tab*) 650 mg PO Q4H PRN PRN Reason: PAIN or TEMP > 101 F Last Admin: 12/29/16 20:18 Dose: 650 mg Al Hydrox/Mg Hydrox/Simethicone (Maalox Plus*) 30 ml PO Q4H PRN PRN Reason: INDIGESTION Last Admin: 12/28/16 22:56 Dose: 30 ml Benzocaine (Baby Orajel 7.5%*) 1 applic TOPICAL QID PRN PRN Reason: oral pain Last Admin: 12/22/16 18:14 Dose: 1 apply Cetirizine HCl (Zyrtec*) 5 mg PO DAILY PRN PRN Reason: Allergy Symptoms Last Admin: 12/07/16 20:53 Dose: 5 mg Clonazepam (Klonopin Tab(*)) 1 mg PO Q8H PRN PRN Reason: ANXIETY Last Admin: 01/02/17 11:25 Dose: 1 mg Device (Nicotine Mouth Piece*) 1 each INH .CARTRIDGE [facility] Last Admin: 12/29/16 20:09 Dose: 1 each Ferrous Sulfate (Ferrous Sulfate Tab*) 325 mg PO BID [facility] Last Admin: 01/02/17 09:09 Dose: 325 mg Haloperidol (Haldol Tab*) 2 mg PO Q6H PRN PRN Reason: AGITATION Last Admin: 01/02/17 11:25 Dose: 2 mg Hydroxyzine HCl (Atarax Tab*) 25 mg PO Q6H PRN PRN Reason: ANXIETY Last Admin: 01/02/17 11:25 Dose: 25 mg Ibuprofen (Motrin Tab*) 800 mg PO Q8H PRN PRN Reason: PAIN Last Admin: 01/01/17 23:42 Dose: 800 mg Brule Carbonate (Brule Carbonate Er Tab*) 450 mg PO TID [facility] Last Admin: 01/02/17 09:31 Dose: 450 mg Multivitamins (Theragran Tab*) 1 tab PO DAILY [facility] Last Admin: 01/02/17 09:08 Dose: 1 tab Nicotine (Nicotine Inhaler*) 10 mg INH Q2H PRN PRN Reason: CRAVING Last Admin: 01/01/17 23:43 Dose: 10 mg Nicotine Polacrilex (Nicotine Gum*) 2 mg PO Q2H PRN PRN Reason: CRAVING Last Admin: 11/25/16 14:19 Dose: 2 mg Olanzapine (Zyprexa * Tab Odt) 5 mg PO Q6H PRN PRN Reason: AGITATION Last Admin: 01/01/17 18:16 Dose: 5 mg Olanzapine (Zyprexa *Odt*) 20 mg PO 2100 [facility] Last Admin: 01/01/17 21:31 Dose: 20 mg Discharge Planning: Prescriptions provided for discharge [] Yes [x] No Follow up care details as per social work arrangements. Patient response to discharge plan: [] eager for discharge [] agreeable with discharge plan [] ambivalent about discharge [x] disagrees with discharge today, would prefer discharge to hot room or holding for Corthera
== END 2017-01-02 11:35 | disposition short-term general hospital (02) | DRG 885 ==
LOC: ED 14:27 → BSU 11-24 03:45
PROVIDERS: ADMIT Psychiatry & Neurology Psychiatry; ATTEND Psychiatry & Neurology Psychiatry
PROC: GZHZZZZ Group Psychotherapy (ICD-10-PCS; principal; 2016-12-14)
DX: F25.9 Schizoaffective disorder, unspecified (principal); F39 Unspecified mood [affective] disorder; E66.9 Obesity, unspecified; F29 Unspecified psychosis not due to a substance or known physiological condition; F15.90 Other stimulant use, unspecified, uncomplicated; F12.90 Cannabis use, unspecified, uncomplicated; F14.90 Cocaine use, unspecified, uncomplicated; R00.0 Tachycardia, unspecified; F43.20 Adjustment disorder, unspecified; F31.9 Bipolar disorder, unspecified; K08.89 Other specified disorders of teeth and supporting structures; Z68.34 Body mass index [BMI] 34.0-34.9, adult; Z81.8 Family history of other mental and behavioral disorders; Z87.891 Personal history of nicotine dependence
CPT/HCPCS: 36415; 80053; 80061; 80178; 80307; 80320; 80329; 81003; 82947; 83036; 84443; 84702; 85025; 90853; 99222; 99231; 99232; 99233; 99238; 99406; A9270-GY; G0480; J1200; J1630; J2060

== ENCOUNTER 2018-02-28 14:19 | Emergency (ER) | payer MEDICARE ==
[2018-02-28 14:24] VITALS: BP 119/71
[2018-02-28] MEDS ORDERED: Ketorolac INJ* 60 MG/2 ML VIAL IM ONE (16:10)
--- NOTE | 2018-02-28 16:16 | ED ---
Upper Extremity Pain - HPI Summary HPI Summary: Patient is an otherwise healthy 38-year-old female presenting to the ED with left shoulder pain 1 week. She denies any injury or trauma. She states she does not work and does no overuse or overhead activity. Pain is located on the most superior part of the shoulder and radiates up into the neck. Denies any numbness or tingling into the arm or fingertips. She is able to rotate about the neck without pain. She is asking for pain medications on arrival. She appears to be in no acute distress. - History of Current Complaint Chief Complaint: EDExtremityUpper Stated Complaint: LT SHOULDER PAIN Time Seen by Provider: 02/28/18 15:28 Hx Obtained From: Patient Onset/Duration: Started Hours Ago Timing: Constant Severity Initially: Moderate Severity Currently: Moderate Pain Location: Shoulder Character: Aching Alleviating Factor(s): Nothing Associated Signs & Symptoms: Positive: Negative Related History: Dominant Hand Right - Risk Factors Non-Orthopedic Risk Factor: Negative DVT Risk Factors: Negative Septic Arthritis Risk Factor: Negative Compartment Syndrome Risk Factors: Pain - Allergies/Home Medications Allergies/Adverse Reactions: Allergies Allergy/AdvReac Type Severity Reaction Status Date / Time latex Allergy Itching Verified 02/28/18 14:24 PMH/Surg Hx/FS Hx/Imm Hx Previously Healthy: Yes Cardiovascular History: Comment Only: Hx Hypertension - Patient does take HCTZ but denies any history of HTN Musculoskeletal History: Reports: Other Musculoskeletal History - Pulled muscle , left side of neck, pain occasionally radiates with numbness Sensory History: Denies: Hx Contacts or Glasses, Hx Hearing Aid Opthamlomology History: Denies: Hx Contacts or Glasses Psychiatric History: Reports: Hx Depression, Hx Bipolar Disorder, Hx of Violent Episodes Against Others, Other Psychiatric Issues/Disorders - Schizpaffective disorder Denies: Hx Eating Disorder - Immunization History Hx Pertussis Vaccination: No Immunizations Up to Date: Unable to Obtain/Confirm Infectious Disease History: No Infectious Disease History: Denies: Traveled Outside the [place] in Last 30 Days - Family History Known Family History: Positive: None Family History: FHx of schizophrenia - brother - Social History Occupation: Employed Full-time Lives: With Family Alcohol Use: None Hx Substance Use: No Substance Use Type: Reports: None Substance Use Comment - Amount & Last Used: percocet, xanax Hx Tobacco Use: Yes Smoking Status (MU): Light Every Day Tobacco Smoker Type: Cigarettes Length of Time of Smoking/Using Tobacco: 10 years Have You Smoked in the Last Year: Yes Review of Systems Constitutional: Negative Negative: Fever, Chills, Fatigue, Skin Diaphoresis Negative: Palpitations, Chest Pain Negative: Shortness Of Breath Genitourinary: Negative Positive: no symptoms reported, see HPI Positive: Myalgia - right superior shoulder pain radiating to the R side of the neck Skin: Negative Neurological: Negative All Other Systems Reviewed And Are Negative: Yes Physical Exam Triage Information Reviewed: Yes Vital Signs On Initial Exam: Initial Vitals Temp Pulse Resp BP Pulse Ox 98.4 F 77 15 119/71 100 02/28/18 14:20 02/28/18 14:20 02/28/18 14:20 02/28/18 14:20 02/28/18 14:20 Vital Signs Reviewed: Yes Appearance: Positive: No Pain Distress, Well-Nourished Skin: Positive: Warm, Skin Color Reflects Adequate Perfusion Head/Face: Positive: Normal Head/Face Inspection Eyes: Positive: EOMI, CHRISTOPHER, Conjunctiva Clear Neck: Positive: Supple, No Lymphadenopathy Respiratory/Lung Sounds: Positive: Clear to Auscultation, Breath Sounds Present Musculoskeletal: Positive: Pain @ - right shoulder Neurological: Positive: Speech Normal Psychiatric: Positive: Normal AVPU Assessment: Alert Diagnostics - Vital Signs Vital Signs Temp Pulse Resp BP Pulse Ox 02/28/18 14:20 98.4 F 77 15 119/71 100 - Laboratory Lab Statement: Any lab studies that have been ordered have been reviewed, and results considered in the medical decision making process. Course/Dx - Course Course Of Treatment: On physical examination, she states she is tender to palpation on the most appear portion of the shoulder over the rotator cuff extending into the left lateral side of the neck without radiation down the arm. Denies any numbness or tingling. I discussed this is likely a tendinitis from either overuse, overhead or spontaneous inflammation injury. She is requesting a x-ray at this time. I have advised the x-ray will likely not show us any pathology and have advised against this at this time and to instead try a course of anti-inflammatories and heat. She again requests xray. Xray obtained which is negative. - Diagnoses Differential Diagnosis/HQI/PQRI: Positive: Fracture (Closed), Strain, Sprain, Other Provider Diagnoses: Left shoulder tendinitis Discharge - Sign-Out/Discharge Documenting (check all that apply): Discharge/Admit/Transfer - Discharge Plan Condition: Stable Disposition: HOME Prescriptions: Ketorolac TAB * [Toradol TAB *] 10 mg PO Q6H #16 tab Patient Education Materials: Rotator Cuff Tendinitis (ED) Referrals: Antoinette Branch MD [Medical Doctor] - No Primary Care Phys,NOPCP [Primary Care Provider] - Additional Instructions: ibuprofen 600mg three times daily moist heat - Billing Disposition and Condition Condition: STABLE Disposition: Home
--- NOTE | 2018-02-28 17:11 | RAD ---
INDICATION: Left shoulder pain COMPARISON: None TECHNIQUE: Multiple views were obtained. FINDINGS: The bony structures, joint spaces, and soft tissues are normal for age. IMPRESSION: NO ACUTE BONY FINDINGS.
== END 2018-02-28 18:26 | disposition home or self-care (01) ==
LOC: ED 14:19
DX: M75.92 Shoulder lesion, unspecified, left shoulder (principal); I10 Essential (primary) hypertension; Z79.899 Other long term (current) drug therapy; F17.210 Nicotine dependence, cigarettes, uncomplicated
CPT/HCPCS: 96372; 99282; J1885

== ENCOUNTER 2018-11-22 18:08 | Inpatient (IN) | payer MEDICARE ==
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
[2018-11-22 19:37] LABS: ABS Basophils 0 10^3/ul (0-0.2); ABS Eosinophils 0.2 10^3/ul (0-0.6); ABS Lymphocytes 2.1 10^3/ul (1.0-4.8); ABS Monocytes 0.3 10^3/ul (0-0.8); ABS Neutrophils 2.5 10^3/ul (1.5-7.7); ABS Nucleated RBC 0 10^3/ul; Eosinophil % 3.5 %; Hematocrit 44 % (33-41); Lymphocyte % 40.9 %; Mean Corpuscular HGB Conc 32 g/dL (31-36); Mean Corpuscular Hemoglobin 29 pg (27-31); Mean Corpuscular Volume 91 fL (80-97); Mean Platelet Volume 6.9 fL (7.4-10.4); Nucleated Red Blood Cells % 0.4; Platelet Count 285 10^3/uL (150-450); Red Blood Count 4.88 10^6 /uL (3.70-4.87); Red Cell Distribution Width 16 % (10.5-15); White Blood Count 5.2 10^3/uL (3.5-10.8)
[2018-11-22 20:03] LABS: Acetaminophen < 15 mcg/mL; Alcohol < 10 mg/dL (<10); Salicylate < 2.50 mg/dL (<30)
[2018-11-22 20:18] LABS: TSH (Thyroid Stimulating Horm) 0.53 mcIU/mL (0.34-5.60)
[2018-11-22] MEDS ORDERED: LORazepam TAB(*) 1 MG PO ONE (20:26)
[2018-11-22 20:27] LABS: HCG Pregnancy 1.25 mIU/mL
[2018-11-22 21:05] LABS: Urine Appearance Cloudy; Urine Bilirubin Negative (Negative); Urine Blood Negative (Negative); Urine Color Yellow; Urine Glucose Negative (Negative); Urine Ketones Trace (Negative); Urine Nitrite Negative (Negative); Urine Protein Negative (Negative); Urine Specific Gravity 1.027 (1.010-1.030); Urine Urobilinogen Negative (Negative)
[2018-11-22 21:20] LABS: Barbiturates Urine Screen None Detected (None Detect); Benzodiazepine Urine Screen None Detected (None Detect); Urine Cannabinoids Screen None Detected (None Detect)
[2018-11-22] MEDS ORDERED: Nicotine Inhaler* 10 MG AMP INH ONE (22:00)
--- NOTE | 2018-11-22 22:00 | ED ---
Re-Evaluation - Re-Evaluation First Eval Re-Evaluation Time: 21:03 Comment: Pt is medically cleared. Course/Dx - Diagnoses Provider Diagnoses: Schizoaffective disorder, Homicidal ideation Discharge - Discharge Plan Referrals: No Primary Care Phys,NOPCP [Primary Care Provider] - - Attestation Statements Document Initiated by Scribe: Yes
[2018-11-22] MEDS ORDERED: Mouth Piece, Nicotine* 1 EACH CARTRIDGE ONE (22:13)
[2018-11-23] MEDS ORDERED: Acetaminophen TAB* 325 MG PO ONE (00:33)
[2018-11-23 03:37] VITALS: BP 97/63
[2018-11-23] MEDS ORDERED: Acetaminophen TAB* 325 MG ONE (04:15)
[2018-11-23] MEDS ORDERED: Acetaminophen TAB* 325 MG PO PRN (04:32)
[2018-11-23] MEDS ORDERED: Nicotine GUM* 2 MG PO PRN (04:32)
[2018-11-23] MEDS ORDERED: Al Hydrox/Mg Hydrox/Simet LIQ* 30 ML UDC PO PRN (04:32)
[2018-11-23] MEDS ORDERED: Mouth Piece, Nicotine* 1 EACH CARTRIDGE INH SCH (04:32)
[2018-11-23] MEDS: Nicotine Inhaler* 10 MG AMP INH PRN ×2 (08:53→12:00)
[2018-11-23] MEDS ORDERED: Vitamin THERAPEUTIC TAB PO SCH (09:00)
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
== END 2018-11-23 13:35 | disposition home or self-care (01) | DRG 883 ==
LOC: ED 18:08 → BSU 11-23 03:23
PROVIDERS: ADMIT Psychiatry & Neurology Psychiatry; ATTEND Psychiatry & Neurology Psychiatry
DX: F60.2 Antisocial personality disorder (principal); R45.850 Homicidal ideations; F25.9 Schizoaffective disorder, unspecified; F39 Unspecified mood [affective] disorder; E66.9 Obesity, unspecified; R51 Headache; F32.9 Major depressive disorder, single episode, unspecified; F17.210 Nicotine dependence, cigarettes, uncomplicated; Z81.8 Family history of other mental and behavioral disorders; Z91.040 Latex allergy status; Z68.35 Body mass index [BMI] 35.0-35.9, adult
CPT/HCPCS: 36415; 80307; 80320; 80329; 81003; 84443; 84702; 85025; 99238; 99285; A9270-GY; G0480